=== PATIENT | female | born 1955 | race Caucasian/White ===

== ENCOUNTER 2017-04-16 13:21 | Inpatient (IN) ==
[2017-04-16] MEDS ORDERED: Ondansetron 4 MG/2 ML VIAL IVP ONE (13:39)
[2017-04-16] MEDS ORDERED: *HR* HYDROmorphone (PF) 1 MG/ML SYRINGE IVP ONE (13:40)
--- NOTE | 2017-04-16 13:43 | Emergency Department Note ---
START Narrative - START START: Start note: 62-year-old female from [facility] visit patient for surgeon section [address] scan showed acute cholecystitis and secondary small bowel obstruction. I ordered Dilaudid and Zofran for pain control. Awaiting callback from Dr. Gomez so he can be notified this patient is here to be further evaluated and managed. Patient stable.
[2017-04-16] MEDS ORDERED: Ondansetron 4 MG/2 ML VIAL IVP PRN (14:39)
--- NOTE | 2017-04-16 15:10 | General Surg History&Physical ---
Date of Encounter: 04/16/17 Time of Encounter: 14:35 History of Present Illness Chief complaint: Right upper quadrant abdominal pain HPI: Ms. Adamson is a 62 year old female transferred from [facility] in [place] after presenting there with new onset right upper quadrant abdominal pain with nausea. Evaluation at [facility] included blood work and a CT scan chest and abdomen. Blood work was notable for a leukocytosis of 13.8, hemoglobin 12.8 , hematocrit 38.9. Platelet count was 222,000. Differential was notable for elevated absolute neutrophils 11.9%. Electrolytes, BUN, and creatinine were within normal limits; glucose was 137. Lactic acid was 0.7. Alkaline phosphatase 118, bilirubin 0.5, AST 20, ALT 25. Amylase and lipase were not obtained. Urinalysis was notable for a specific gravity of 1.020, pH 5.5, trace hemoglobin, 3-5 red cells per high powered field. CT of the chest demonstrated minimal bibasilar atelectasis, no other acute findings. CT of the abdomen demonstrated a distended gallbladder with wall thickening and multiple stones within the gallbladder neck. Mild intra-and extrahepatic bile duct dilatation but no definitive choledocholithiasis was identified. The lower bowel loops are somewhat distended leading up to an umbilical hernia containing a loop of small bowel. This loop of small bowel contained within a small jacqueline- umbilical ventral hernia as been demonstrated in the past. While question of partial or low-grade obstruction was made no mucosal thickening was identified. There were no intra-abdominal masses evident within the abdomen or pelvis. Based on these findings, recommendation was to admit the patient for possible small bowel obstruction was made. The patient requested transfer to [facility]. Patient is well known to me as the patient has gone multiple surgeries through my office in the past. Past medical history: hypertension; obesity; known gallstones since 2011; hypothyroidism Surgical history: JEFF/BSO 08/21/2006 complicated by perforation of the rectum. This required exploratory celiotomy with Richard procedure following day, 08/22, completed by Dr. Joseph Richardson. (A former associate of my practice) This surgery was complicated by infection of the anterior abdominal wall requiring operative debridement 09/21/06. The patient underwent reversal of the Richard procedure, 04/2007. The patient underwent exploratory celiotomy, stated lysis of adhesions and segmental small bowel resection 2 and reversal of the Richard procedure. This was completed by Dr. Joseph Richardson. That surgery was complicated by a current infection of the anterior abdominal wall requiring prolonged healing (almost 4 years) despite multiple treatment modalities. Allergies penicillin Medications: Metoprolol 25 mg by mouth daily Levothyroxine 50 mg by mouth daily Citalopram 10 mg by mouth daily Social history: Patient is currently , lives with her ; former smoker having quit in 2005, admitting to 1 pack per day from [id number] (12 years ) Patient denies any alcohol or illicit drug use Physical examination: Age-appropriate female resting comfortably in her urgency Department bed The patient is somewhat lethargic, likely due to medications provided at [facility], but is awake and alert and able to answer questions appropriately. The patient is 62 inches tall, 83 kg; afebrile, 97.2; blood pressure 186/88, pulse 84, respirations 18 and nonlabored; SPO2 on room air 97% Skin is warm, without obvious jaundice; sclerae are anicteric Lungs: Clear, no obvious pain on deep inspiration (patient had previously been medicated) Cardiac: Regular rate, no appreciable murmurs Abdomen: Extensive surgical scarring, particularly in the lower half consistent with the history described above. The periumbilical ventral hernia was not readily palpable. Tenderness in the right upper quadrant lateral to the midclavicular line was evident. No discernible palpable gallbladder, or detected hepatosplenomegaly. No CVA tenderness, no rebound. Bowel sounds hypoactive. Extremities: No obvious clubbing cyanosis or edema Impression: 62-year-old female transferred from [facility], for further evaluation and treatment of new onset right upper quadrant abdominal pain with possible low-grade partial small bowel obstruction. The patient will be admitted for further observation, monitoring and care. IV fluids with appropriate IV narcotic analgesics will be provided. Clear liquids will be permitted if no N/V. The new onset abdominal pain likely due to the known presence of cholelithiasis with resultant biliary colic. The possibility of acute cholecystitis cannot be excluded at this time. The described all bowel dilatation may be chronic related to the patient's prior surgical history and known periumbilical ventral hernia. The possibility of a partial or low- grade bowel obstruction will be investigated during this hospitalization. This has been discussed the patient, she was willing to proceed with the treatment plan as outlined. Past Med Surg Social Fam HX - Past Medical History Medical history: hyperlipidemia, thyroid disease, other Psychiatric history: depression - Social History Smoking Status: Never smoker Alcohol use: none Drug use: none Medications and Allergies Allergies Penicillins Allergy (Verified 04/16/17 13:24) Rash Review of Systems All systems PM: A 10-system review of systems was performed and is negative for pertinent findings except as documented above in the HPI. General Surgery Exam Initial Vital Signs Temp Pulse Resp BP Pulse Ox 98.2 F 89 18 202/104 95 04/16/17 13:24 04/16/17 13:24 04/16/17 13:24 04/16/17 13:24 04/16/17 13:24 Results - Labs All other labs normal.
[2017-04-16] MEDS: *HR* HYDROmorphone (PF) 1 MG/ML SYRINGE IVP PRN (19:04)
[2017-04-16] MEDS ORDERED: Metoprolol XL (24 HR) Succ 25 MG TAB.ER.24H PO ONE (19:18)
[2017-04-16] MEDS ORDERED: D5% in 0.45% NACL 1,000 ML IVC SCH (19:30)
[2017-04-16] MEDS: Acetaminophen 325 MG TABLET PO PRN (21:25)
[2017-04-17] MEDS: *HR* HYDROmorphone (PF) 1 MG/ML SYRINGE IVP PRN ×4 (03:14→22:23)
[2017-04-17 03:53] LABS: Basophils % 0.2 %; Eosinophils % 0.2 %; Hemoglobin 11.7 g/dL (11.5-15.4); Immature Granulocytes % 0.4 % (0-4); Lymphocytes # 1.4 K/mcL (0.6-4.6); Lymphocytes % 8.9 %; Mean Corpuscular HGB Conc 30.8 g/dL (31.6-35.5); Mean Corpuscular Hemoglobin 28.3 pg (28.0-33.3); Mean Corpuscular Volume 91.8 fL (83.0-100.0); Mean Platelet Volume 11.4 fL (9.4-12.4); Monocytes # 1.6 K/mcL (0.0-1.3); Monocytes % 10.2 %; Neutrophils # 12.5 K/mcL (1.6-8.9); Platelet Count 237 K/mcL (140-400); Red Blood Count 4.14 M/mcL (3.82-4.97); Segmented Neutrophils % 80.1 %
[2017-04-17 04:03] LABS: Alanine Aminotransferase 55 Units/L (0-55); Albumin 3.3 g/dL (3.5-5.0); Albumin/Globulin Ratio 0.9 (1.1-2.2); Alkaline Phosphatase 117 Units/L (38-126); Amylase 66 Units/L (25-125); Aspartate Amino Transferase 50 Units/L (5-34); BUN/Creatinine Ratio 11 (6-26); Bilirubin,Total 0.9 mg/dL (0.2-1.2); Blood Urea Nitrogen 9 mg/dL (7-20); Calcium 8.8 mg/dL (8.6-10.8); Carbon Dioxide 27 mEq/L (19-29); Chloride 102 mEq/L (98-109); Globulin 3.5 g/dL (2.4-3.5); Glucose 114 mg/dL (70-99); Lipase 20 Units/L (8-78); Osmolality,Calculated 286 (280-300); Potassium 4.2 mEq/L (3.5-4.5); Sodium 138 mEq/L (136-145); Total Protein 6.8 g/dL (6.0-8.3); eGFR For African Americans > 60 (> 60); eGFR For Non-African Americans > 60 (> 60)
[2017-04-17] MEDS ORDERED: Metoprolol XL (24 HR) Succ 25 MG TAB.ER.24H PO SCH (09:00)
[2017-04-17] MEDS ORDERED: 0.9 % Sodium Chloride Mini Bag 100 ML ONE (09:32)
[2017-04-17] MEDS: Acetaminophen 325 MG TABLET PO PRN (09:37)
--- NOTE | 2017-04-17 13:30 | General Surgery Progress Note ---
Date of Encounter: 04/17/17 Time of Encounter: 13:23 Subjective Patient reports: still having pain (Pain localizing to the right upper quadrant) Narrative: [facility] Day #[facility] the [facility] completed this morning confirms the presence of acute calculus cholecystitis. The patient has been afebrile, currently 99.2; pulse 75, respirations 18, blood pressure 99/66 - 102/69 Tenderness now localized to the right upper quadrant. The rest the abdomen was fairly unremarkable. The patient is tolerating clear liquid diet White count slightly increased to 15.6, hemoglobin 11.7 hematocrit 38.0. Platelet count 237,000, neutrophils increased to 12.5% CT from [facility] was reviewed with [facility]. A prior CT, 2012, was used for comparison. The described small bowel dilatation appears to be slightly increased from 2013 but the bowel pattern does not demonstrate transition zone or other findings suggestive of a bowel obstruction. The described small periumbilical ventral hernia appears to be all bowel densely adherent to the anterior abdominal wall related to the prior surgical history. This was discussed with the patient. The patient's acute symptoms are related to her hepatobiliary disease and surgery for this entity as been recommended. The patient is not considered to be a candidate for laparoscopic or robotic surgery. An open cholecystectomy was gradual. The procedure was discussed with the patient. Risks include hemorrhage, infection, intra-abdominal abscess , bile leak, injury to adjacent ducts, vessels, organs, and bowel. Possible respiratory and cardiac risks such as respiratory failure and prolonged mechanical ventilation, dysrhythmia and WA was also discussed. Consent has been obtained from the patient. Surgery is planned for later today Objective Vital Signs - Last 8 Hours Temp Pulse Resp BP Pulse Ox 04/17/17 11:00 99.2 F 75 18 99/66 95 04/17/17 07:32 98.6 F 70 18 102/69 94 Intake and Output 04/16/17 04/17/17 04/17/17 23:59 07:59 15:59 Intake Total 240 / 240 294 / 294 479 / 479 Output Total 200 / 200 300 / 300 0 / 0 Balance 40 / 40 -6 / -6 479 / 479 Intake: IV Fluids 294 / 294 359 / 359 0.9 % Sodium Chloride ( 100 / 100 Mini-Bag +) 100 ML As . ROUTE .[facility] Rx#: [id number] D5% And 0.45% Nacl 1000 294 / 294 259 / 259 Ml Bag 1,000 ML @ 50 mls/ hr IVC .Q20H [facility] Rx#: [id number] Oral 240 / 240 0 / 0 120 / 120 Output: Urine 200 / 200 300 / 300 0 / 0 Other: Meal Dinner Lunch Weight 84.3 kg 84.3 kg 84.51 kg Blood Glucose* 146 Patient Weight 04/17/17 23:59 Weight 84.51 kg - Labs 04/17/17 02:30 04/17/17 02:30 Diabetes panel 04/17/17 Range/Units 02:30 Sodium 138 (136-145) mEq/L Potassium 4.2 (3.5-4.5) mEq/L Chloride 102 (98-109) mEq/L Carbon Dioxide 27 (19-29) mEq/L BUN 9 (7-20) mg/dL Creatinine 0.84 (0.57-1.11) mg/dL Glucose 114 H (70-99) mg/dL Calcium 8.8 (8.6-10.8) mg/dL AST 50 H (5-34) Units/L ALT 55 (0-55) Units/L Alkaline Phosphatase 117 (38-126) Units/L Albumin 3.3 L (3.5-5.0) g/dL Calcium panel 04/17/17 Range/Units 02:30 Calcium 8.8 (8.6-10.8) mg/dL Albumin 3.3 L (3.5-5.0) g/dL Pituitary panel 04/17/17 Range/Units 02:30 Sodium 138 (136-145) mEq/L Potassium 4.2 (3.5-4.5) mEq/L Chloride 102 (98-109) mEq/L Carbon Dioxide 27 (19-29) mEq/L BUN 9 (7-20) mg/dL Creatinine 0.84 (0.57-1.11) mg/dL Glucose 114 H (70-99) mg/dL Calcium 8.8 (8.6-10.8) mg/dL Adrenal panel 04/17/17 Range/Units 02:30 Sodium 138 (136-145) mEq/L Potassium 4.2 (3.5-4.5) mEq/L Chloride 102 (98-109) mEq/L Carbon Dioxide 27 (19-29) mEq/L BUN 9 (7-20) mg/dL Creatinine 0.84 (0.57-1.11) mg/dL Glucose 114 H (70-99) mg/dL Calcium 8.8 (8.6-10.8) mg/dL Total Bilirubin 0.9 (0.2-1.2) mg/dL AST 50 H (5-34) Units/L ALT 55 (0-55) Units/L Alkaline Phosphatase 117 (38-126) Units/L Albumin 3.3 L (3.5-5.0) g/dL Consult Discharge Plan - Plan Referrals: Bertha Aleman DO [Primary Care Provider] -
[2017-04-17] MEDS ORDERED: *HR* Propofol 200 MG/20 ML VIAL IVP ONE (16:30)
[2017-04-17] MEDS ORDERED: *HR* Midazolam HCl 2 MG/2 ML VIAL ONE (16:30)
[2017-04-17] MEDS ORDERED: Ondansetron 4 MG/2 ML VIAL ONE (16:30)
[2017-04-17] MEDS ORDERED: Dexamethasone 4 MG/ML VIAL ONE (16:30)
[2017-04-17] MEDS ORDERED: Lidocaine -MPF 2% 2 ML VIAL ONE (16:30)
[2017-04-17] MEDS ORDERED: *HR* FentaNYL (PF) 100 MCG/2 ML VIAL ONE (16:30)
[2017-04-17] MEDS ORDERED: Bupivacaine/EPI 1:200k 0.25%PF 10 ML VIAL INFILT ONE (16:47)
--- NOTE | 2017-04-17 16:53 | Anesthesia Evaluation PreOp ---
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 Other Medical History: Thyroid Anesthesia History: Past Anesthesia, Problems Alcohol Use: none Drug use: none Medications and Allergies Citalopram Hydrobromide [Citalopram HBr] 10 mg PO DAILY 04/16/17 [History] Levothyroxine [Synthroid] 50 mcg PO DAILY 04/16/17 [History] Metoprolol XL (24 HR) Succ [Toprol XL] 25 mg PO DAILY 04/16/17 [History] Allergies Penicillins Allergy (Verified 04/16/17 13:24) Rash - Meds/Allergy Pre-op Review Medications Reviewed: Yes Allergies Reviewed: Yes Beta Blockers on Current Med List: Yes (last dose 04/16/17) Anesthesia Results - Labs 04/17/17 02:30 04/17/17 02:30 Anesthesia Exam Selected Entries 04/17/17 15:54 Temperature 98.5 F Pulse Rate 74 Respiratory Rate 18 Blood Pressure 111/75 O2 Sat by Pulse Oximetry 94 Oxygen Flow Rate (LPM) 2 Weight: 85 NPO (# of Hours): clears until 1 pm Pain Scale: 6 - HEENT Pupil (Motor): Pupils equal Mallampati: II Teeth: Normal Oral Opening: Greater than 3 - Cardiac Rhythm: Regular - Pulmonary Breath Sounds: bilateral Clear Anesthesia Assess/Plan ASA Score: 2 Modified Lowell Scale for Level of Consciousness: Anixous, agitated or restless (In acute pain) Anesthetic Plan: General Monitoring Plan: Standard Monitors Recovery Plan: PACU (Rapid sequence intubation will be performed. Discussed GA risks discussed, patient agreed. Will proceed.)
[2017-04-17] MEDS ORDERED: *HR* Midazolam HCl 2 MG/2 ML VIAL IVP PRN ×2 (16:58→18:20)
[2017-04-17] MEDS ORDERED: Ketorolac 30 MG/ML VIAL IVP ONE (16:58)
[2017-04-17] MEDS ORDERED: Bupivacaine/EPI 1:200k 0.25%PF 30 ML VIAL ONE (17:43)
[2017-04-17] MEDS ORDERED: *HR* Metoprolol 5 MG/5 ML VIAL IVP PRN (18:20)
[2017-04-17] MEDS ORDERED: *HR* HYDROmorphone (PF) 1 MG/ML SYRINGE IVP PRN (18:20)
[2017-04-17] MEDS ORDERED: Ondansetron 4 MG/2 ML VIAL IVP ONE (18:20)
[2017-04-17] MEDS ORDERED: *HR* HYDROmorphone 2 MG/ML SYRINGE ONE (18:37)
--- NOTE | 2017-04-17 19:18 | Operative Note ---
Date of procedure: 04/17/17 Pre-op diagnosis: Acute acalculous cholecystitis Post-op diagnosis: same (Acute calculus cholecystitis) Procedure: Open cholecystectomy Implants: 7 mm LARISSA drain Complications: None apparent Anesthesia: GETA Local Anesthetics: 0.25% Sensorcaine HCL with Epinephrine 1:200,000 SubQ (cc) ( 40 mL) Surgeon: Jm Gomez Estimated blood loss (cc): 50 IV fluids (cc): 1,000 Specimen: gallbladder Condition: stable Disposition: PACU Procedure in Detail: The patient was brought to the operating room where she was placed supine upon the operating room table. The patient was appropriately identified as person and procedure. The accuracy of that information was confirmed by the procedure team. The patient was intubated and anesthetized under the supervision of Dr. Megan Mendoza. The abdomen was prepped and draped in usual sterile fashion. Several milliliters of 0.25% bupivacaine with 1-200,000 epinephrine was infiltrated into the skin. A subcostal incision was made essentially from the midline to the anterior axillary line. Dissection was carried to the anterior rectus sheath. Bleeding points were controlled with electrocautery. The anterior rectus fascia was incised, the right rectus abdominis divided with electrocautery. Posterior rectus sheath was grasped with 2 curved Yulia clamps , elevated, and incised. This allowed atraumatic entry into the abdominal cavity. Exposure was facilitated by use of the self retaining Omni-Tract retractor. There are multiple adhesions within the peritoneal cavity consistent with the patient's previous surgery as well as the acute calculus cholecystitis. The adhesions were divided predominantly by blunt dissection. The gallbladder was dissected from the liver bed with bleeding points controlled with Argon Beam Coagulation. The cystic artery was identified clipped and divided. The cystic cystic duct was also identified clipped twice distally, a suture placed proximally near the infundibulum of gallbladder and then divided. The gallbladder was removed and sent to pathology. There was at least one large stone within the gallbladder. The common bile duct and common hepatic duct was dilated but there were no palpable stones. Due to the acute inflammation and appropriate visualization of the anatomy, I opted not to obtain a cholangiogram. Liver bed was fulgurated with Argon Beam coagulation. A 7 mm Fredy-Hamm was placed in the gallbladder fossa and exited through a separate stab wound on the anterior abdominal wall and the right upper quadrant. The drain was positioned and secured to the anterior abdominal wall with 3-0 silk. Hemostasis appeared to be adequate. Closure was then initiated in layers. The peritoneum was approximated with the posterior rectus sheath using running, interlocking 0 Vicryl. This layer was infiltrated with several milliliters of 0.25% bupivacaine with 1-200,000 epinephrine. The anterior rectus sheath was then approximated with interrupted [id number] 0 Vicryl. This layer was also infiltrated with the bupivacaine with epinephrine solution. The subcutaneous tissue was reapproximated with running 3-0 Vicryl. The skin edges were infiltrated with additional bupivacaine epinephrine and approximated with randal. A dry sterile dressing was applied. The patient was taken to recovery in stable condition. Needle, sponge, and instrument counts were correct at the close of the case. Total volume of 0.25% bupivacaine with 1-200, 000 epinephrine used during the surgery, 40 mL.
[2017-04-17] MEDS: *HR* Morphine 2 MG/ML SYRINGE IVP PRN ×2 (19:40→19:52)
--- NOTE | 2017-04-17 20:07 | Anesthesia Evaluation Post Op ---
Date of Encounter: 04/17/17 Time of Encounter: 20:05 - Vital Signs Vital Signs: Vital Signs/O2 Sat/Glucose, Most Current Temp Pulse Resp BP Pulse Ox 04/17/17 19:58 97.8 F 93 16 145/75 94 04/17/17 19:48 97 14 141/77 93 04/17/17 19:38 98 14 152/84 94 04/17/17 19:28 97.6 F 102 14 152/84 91 04/17/17 19:18 95 12 138/70 97 04/17/17 19:08 93 12 143/62 94 04/17/17 18:58 97.3 F L 87 12 124/70 96 - Lungs Lungs: Clear Ascult./Percussion - Airway Airway: Non-obstructed - Cardiovascular Regular Rate - Mental Status Mental Status: Alert & Oriented, Answers Appropriately - Nausea Vomiting Nausea Vomiting: Not Present - Hydration Hydration: Ice chips - Discharge PostOp Status: Transfer Patient to floor
[2017-04-17] MEDS ORDERED: Ondansetron 4 MG/2 ML VIAL IVP PRN (20:30)
[2017-04-17] MEDS ORDERED: *HR* OxyCODONE/APAP 5/325 TABLET PO PRN (20:30)
[2017-04-17] MEDS: Ringers Solution, Lactated 1,000 ML IVC SCH (22:25)
[2017-04-18] MEDS: *HR* HYDROmorphone (PF) 1 MG/ML SYRINGE IVP PRN ×5 (01:41→19:54)
[2017-04-18] MEDS: Ringers Solution, Lactated 1,000 ML IVC SCH ×2 (04:10→19:54)
[2017-04-18 05:13] LABS: Basophils % 0.1 %; Hematocrit 32.4 % (35.3-44.9); Hemoglobin 10.5 g/dL (11.5-15.4); Immature Granulocytes % 0.8 % (0-4); Lymphocytes # 0.5 K/mcL (0.6-4.6); Lymphocytes % 2.7 %; Mean Corpuscular HGB Conc 32.4 g/dL (31.6-35.5); Mean Corpuscular Hemoglobin 28.8 pg (28.0-33.3); Mean Platelet Volume 10.9 fL (9.4-12.4); Monocytes # 1.3 K/mcL (0.0-1.3); Monocytes % 6.9 %; Neutrophils # 16.3 K/mcL (1.6-8.9); Platelet Count 228 K/mcL (140-400); Red Blood Count 3.64 M/mcL (3.82-4.97); Red Cell Distribution Width 14.8 % (11.5-14.5); Segmented Neutrophils % 89.5 %
[2017-04-18 05:24] LABS: Alanine Aminotransferase 81 Units/L (0-55); Albumin 2.8 g/dL (3.5-5.0); Albumin/Globulin Ratio 0.8 (1.1-2.2); Alkaline Phosphatase 126 Units/L (38-126); Aspartate Amino Transferase 68 Units/L (5-34); BUN/Creatinine Ratio 16 (6-26); Bilirubin,Direct 0.4 mg/dL (0.0-0.5); Bilirubin,Indirect 0.4 mg/dL (0.0-1.2); Bilirubin,Total 0.8 mg/dL (0.2-1.2); Blood Urea Nitrogen 13 mg/dL (7-20); Calcium 8.9 mg/dL (8.6-10.8); Carbon Dioxide 29 mEq/L (19-29); Chloride 103 mEq/L (98-109); Globulin 3.3 g/dL (2.4-3.5); Glucose 134 mg/dL (70-99); Osmolality,Calculated 286 (280-300); Potassium 4.5 mEq/L (3.5-4.5); Sodium 137 mEq/L (136-145); Total Protein 6.1 g/dL (6.0-8.3); eGFR For African Americans > 60 (> 60); eGFR For Non-African Americans > 60 (> 60)
--- NOTE | 2017-04-18 13:49 | General Surgery Progress Note ---
Date of Encounter: 04/18/17 Time of Encounter: 13:40 Subjective Patient reports: feels better, still having pain, pain is less Narrative: POD # 1: patient feeling better; c/o pain but diminished from pre op. Tolerating diet, no nausea or vomiting. Pain likely incisional following open cholecystectomy last evening. the patient has remained afebrile, pulse 78(range); respiratory rate 18; blood pressure 115/69 Lungs: clear to auscultation but right upper quadrant pain with inspiration. Cardiac: regular rate, no appreciable murmurs Abd: obese with jacqueline incisional pain; incision clean and dry. Active bowel sounds. LARISSA drain - 665 mL for this calendar day - no recorded drainage yesterday. The drainage has changed in character from bilious to semi liquid bilious fluid This is concerning. Urine output : 350 mL so far today - acceptable laboratories: WBC 18.2; Hgb 10.5, Hct 32.4; Platelets 228,000 electrolytes, BUN, creatinine within normal limits Total bilirubin o.8; AST 68; ALT 81; alkaline phosphatase 126 Impression: POD #1 for acute calculus cholecystitis, s/p open cholecystectomy. Acceptable post op status but LARISSA drainage concerning as the fluid in the reservoir appears similar to stool. Patient c/o pain not controlled by oral analgesics - will increase the Percocet to 10/325 every 6 hours PRN abnormal labs appear to be due to the recent surgery - will recheck in AM Plan: urgent CT resume Ertapenem pending CT results. Objective Vital Signs - Last 8 Hours Temp Pulse Resp BP Pulse Ox 04/18/17 11:13 98.9 F 74 18 103/62 96 04/18/17 07:59 98.6 F 71 20 131/72 97 Intake and Output 04/17/17 04/18/17 04/18/17 23:59 07:59 15:59 Intake Total 1050 / 1050 498 / 498 Output Total 690 / 690 Balance 845 / 845 -192 / -192 Intake: IV Fluids 1000 / 1000 378 / 378 Lactated Ringers 1,000 ML 1000 / 1000 378 / 378 @ 75 mls/hr IVC .[id number] [facility] Rx#:[id number] Oral 50 / 50 120 / 120 Output: Urine 0 / 0 350 / 350 Wound Drainage 340 / 340 Right Abdomen 205 / 205 340 / 340 Other: Meal Breakfast Percent of Meal Consumed 25% # Voids 1 Weight 89.9 kg Patient Weight 04/18/17 23:59 Weight 89.9 kg - Labs 04/18/17 04:44 04/18/17 04:44 Diabetes panel 04/18/17 Range/Units 04:44 Sodium 137 (136-145) mEq/L Potassium 4.5 (3.5-4.5) mEq/L Chloride 103 (98-109) mEq/L Carbon Dioxide 29 (19-29) mEq/L BUN 13 (7-20) mg/dL Creatinine 0.83 (0.57-1.11) mg/dL Glucose 134 H (70-99) mg/dL Calcium 8.9 (8.6-10.8) mg/dL AST 68 H (5-34) Units/L ALT 81 H (0-55) Units/L Alkaline Phosphatase 126 (38-126) Units/L Albumin 2.8 L (3.5-5.0) g/dL Calcium panel 04/18/17 Range/Units 04:44 Calcium 8.9 (8.6-10.8) mg/dL Albumin 2.8 L (3.5-5.0) g/dL Pituitary panel 04/18/17 Range/Units 04:44 Sodium 137 (136-145) mEq/L Potassium 4.5 (3.5-4.5) mEq/L Chloride 103 (98-109) mEq/L Carbon Dioxide 29 (19-29) mEq/L BUN 13 (7-20) mg/dL Creatinine 0.83 (0.57-1.11) mg/dL Glucose 134 H (70-99) mg/dL Calcium 8.9 (8.6-10.8) mg/dL Adrenal panel 04/18/17 Range/Units 04:44 Sodium 137 (136-145) mEq/L Potassium 4.5 (3.5-4.5) mEq/L Chloride 103 (98-109) mEq/L Carbon Dioxide 29 (19-29) mEq/L BUN 13 (7-20) mg/dL Creatinine 0.83 (0.57-1.11) mg/dL Glucose 134 H (70-99) mg/dL Calcium 8.9 (8.6-10.8) mg/dL Total Bilirubin 0.8 (0.2-1.2) mg/dL AST 68 H (5-34) Units/L ALT 81 H (0-55) Units/L Alkaline Phosphatase 126 (38-126) Units/L Albumin 2.8 L (3.5-5.0) g/dL - VTE Documentation of Mechanical Device: Venous foot pump, device Consult Discharge Plan - Plan Referrals: Jm Gomez MD [Emergency Midlevel Provider] - Bertha Aleman DO [Primary Care Provider] -
[2017-04-18] MEDS: *HR* OxyCODONE/APAP 10/325 TABLET PO PRN ×2 (15:59→23:03)
[2017-04-18] MEDS: Ertapenem 1,000 MG in 0.9 % Sodium Chloride Mini Bag 100 ML IVPB SCH (15:59)
[2017-04-19] MEDS: *HR* HYDROmorphone (PF) 1 MG/ML SYRINGE IVP PRN ×3 (01:57→21:45)
[2017-04-19 05:27] LABS: Hematocrit 33.4 % (35.3-44.9); Hemoglobin 10.6 g/dL (11.5-15.4); Mean Corpuscular HGB Conc 31.7 g/dL (31.6-35.5); Mean Corpuscular Hemoglobin 28.7 pg (28.0-33.3); Mean Corpuscular Volume 90.5 fL (83.0-100.0); Mean Platelet Volume 11.1 fL (9.4-12.4); Platelet Count 269 K/mcL (140-400); Red Blood Count 3.69 M/mcL (3.82-4.97); Red Cell Distribution Width 14.9 % (11.5-14.5)
[2017-04-19 05:42] LABS: Alanine Aminotransferase 48 Units/L (0-55); Albumin 2.4 g/dL (3.5-5.0); Albumin/Globulin Ratio 0.7 (1.1-2.2); Alkaline Phosphatase 107 Units/L (38-126); Amylase 71 Units/L (25-125); Aspartate Amino Transferase 33 Units/L (5-34); BUN/Creatinine Ratio 21 (6-26); Bilirubin,Total 0.6 mg/dL (0.2-1.2); Blood Urea Nitrogen 21 mg/dL (7-20); Calcium 8.9 mg/dL (8.6-10.8); Carbon Dioxide 29 mEq/L (19-29); Chloride 99 mEq/L (98-109); Globulin 3.3 g/dL (2.4-3.5); Glucose 138 mg/dL (70-99); Lipase 18 Units/L (8-78); Osmolality,Calculated 285 (280-300); Potassium 4.6 mEq/L (3.5-4.5); Sodium 135 mEq/L (136-145); Total Protein 5.7 g/dL (6.0-8.3); eGFR For African Americans > 60 (> 60); eGFR For Non-African Americans 57 (> 60)
[2017-04-19 05:50] LABS: Eosinophils # 0.2 K/mcL (0.0-0.6); Monocytes # 0.6 K/mcL (0.0-1.3); Neutrophils # 8.5 K/mcL (1.6-8.9); Platelet Estimate Normal (Normal)
[2017-04-19] MEDS: *HR* OxyCODONE/APAP 10/325 TABLET PO PRN ×2 (06:50→19:02)
[2017-04-19] MEDS: Ertapenem 1,000 MG in 0.9 % Sodium Chloride Mini Bag 100 ML IVPB SCH (08:50)
--- NOTE | 2017-04-19 11:46 | General Surgery Progress Note ---
Date of Encounter: 04/19/17 Time of Encounter: 11:29 Subjective Patient reports: feels better, pain is less, tolerating a regular diet Narrative: POD #2 - patient feeling better; incisional pain is better controlled with Percocet 10/325. The patient is tolerating a regular diet, no nausea or vomiting. CT completed yesterday was personally reviewed [facility] shortly after completion yesterday. Findings include: Small right pleural effusion and right lower lobe atelectasis; fatty obstruction of the liver; evidence of recent cholecystectomy with fluid in the gallbladder fossa; fluid in the right paracolic gutter was also described;stable right nephrolithiasis without obstructive uropathy; drain well positioned in the gallbladder fossa; right Flank hematoma with no evidence of active bleeding; normal-appearing bowel pattern with no evidence of obstruction or ileus; no findings suggestive subhepatic abscess or suspicious fluid collection consistent with local bowel injury following the open cholecystectomy. Afebrile, currently 98.1; pulse 86, respirations 16, blood pressure 127/77. She is still on nasal cannula, 1 L/m, SPO2 91-93%. Lungs: Clear to auscultation, minimal persistent right subcostal pain with deep inspiration consistent with recent open cholecystectomy Cardiac: Regular rate, no appreciable murmurs Abdomen: Obese, soft with tenderness localized around the incision. The subcostal incision is clean and dry and healing nicely. Active bowel sounds are audible. LARISSA - continued bilious drainage; 755 mL recorded 46; 165 mL so far today. Laboratories: Leukocytosis resolved, 10.4; stable hemoglobin 10.6, hematocrit 33.4. Platelet count 269,000. 12% band neutrophils noted. Electrolytes, BUN, creatinine notable for potassium of 4.6, sodium 135, BUN 21, creatinine 0.99. LFTs have normalized; bilirubin 0.6, AST 33, ALT 48, alkaline phosphatase 107. Amylase 71, lipase 18. Pathology: Chronic cholecystitis, cholelithiasis. In the gross description of the gallbladder gallbladder wall was markedly edematous averaging 4 mm In thickness. The edema consistent with the intraoperative findings of acute calculus cholecystitis. Impression: POD #2 - s/p open cholecystectomy. Incisional pain as expected. Pathologic findings consistent with clinical diagnosis. Postoperative bile leak Hyponatremia without obvious symptoms Borderline hyperkalemia, 4.6 No persistent evidence SBO. Plan: continue IV ATB, encourage incentive spirometry and activity OOB. continue percocet 10/325 for pain monitor LARISSA output - patient may benefit from ERCP with placement biliary stent if the bile leak appears to persist without abatement. Objective Vital Signs - Last 8 Hours Temp Pulse Resp BP Pulse Ox 04/19/17 07:55 98.1 F 86 16 127/77 93 04/19/17 04:04 98.3 F 89 14 103/69 91 Intake and Output 04/18/17 04/19/17 04/19/17 23:59 07:59 15:59 Intake Total 221 / 221 0 / 0 770 / 770 Output Total 340 / 340 180 / 180 85 / 85 Balance -119 / -119 -180 / -180 685 / 685 Intake: IV Fluids 221 / 221 770 / 770 Lactated Ringers 1,000 ML 121 / 121 670 / 670 @ 50 mls/hr IVC .Q20H [facility] Rx#:[id number] INVanz 1,000 MG In 0.9 % 100 / 100 100 / 100 Sodium Chloride (Mini-Bag +) 100 ML @ 100 mls/hr IVPB DAILY [facility] Rx#: [id number] Oral 0 / 0 0 / 0 Output: Urine 250 / 250 100 / 100 Wound Drainage 90 / 90 80 / 80 85 / 85 Right Abdomen 90 / 90 80 / 80 85 / 85 Other: Weight 90.2 kg Patient Weight 04/19/17 23:59 Weight 90.2 kg - Labs 04/19/17 04:09 04/19/17 04:09 Diabetes panel 04/19/17 Range/Units 04:09 Sodium 135 L (136-145) mEq/L Potassium 4.6 H (3.5-4.5) mEq/L Chloride 99 (98-109) mEq/L Carbon Dioxide 29 (19-29) mEq/L BUN 21 H (7-20) mg/dL Creatinine 0.99 (0.57-1.11) mg/dL Glucose 138 H (70-99) mg/dL Calcium 8.9 (8.6-10.8) mg/dL AST 33 (5-34) Units/L ALT 48 (0-55) Units/L Alkaline Phosphatase 107 (38-126) Units/L Albumin 2.4 L (3.5-5.0) g/dL Calcium panel 04/19/17 Range/Units 04:09 Calcium 8.9 (8.6-10.8) mg/dL Albumin 2.4 L (3.5-5.0) g/dL Pituitary panel 04/19/17 Range/Units 04:09 Sodium 135 L (136-145) mEq/L Potassium 4.6 H (3.5-4.5) mEq/L Chloride 99 (98-109) mEq/L Carbon Dioxide 29 (19-29) mEq/L BUN 21 H (7-20) mg/dL Creatinine 0.99 (0.57-1.11) mg/dL Glucose 138 H (70-99) mg/dL Calcium 8.9 (8.6-10.8) mg/dL Adrenal panel 04/19/17 Range/Units 04:09 Sodium 135 L (136-145) mEq/L Potassium 4.6 H (3.5-4.5) mEq/L Chloride 99 (98-109) mEq/L Carbon Dioxide 29 (19-29) mEq/L BUN 21 H (7-20) mg/dL Creatinine 0.99 (0.57-1.11) mg/dL Glucose 138 H (70-99) mg/dL Calcium 8.9 (8.6-10.8) mg/dL Total Bilirubin 0.6 (0.2-1.2) mg/dL AST 33 (5-34) Units/L ALT 48 (0-55) Units/L Alkaline Phosphatase 107 (38-126) Units/L Albumin 2.4 L (3.5-5.0) g/dL - VTE Documentation of Mechanical Device: Venous foot pump, device Consult Discharge Plan - Plan Referrals: Jm Gomez MD [Emergency Midlevel Provider] - Bertha Aleman DO [Primary Care Provider] -
[2017-04-19] MEDS: Ringers Solution, Lactated 1,000 ML IVC SCH (21:45)
[2017-04-20] MEDS: *HR* OxyCODONE/APAP 10/325 TABLET PO PRN ×4 (02:56→20:28)
[2017-04-20 05:05] LABS: Basophils % 0.2 %; Eosinophils # 0.1 K/mcL (0.0-0.6); Eosinophils % 0.9 %; Hematocrit 30.7 % (35.3-44.9); Hemoglobin 9.6 g/dL (11.5-15.4); Immature Granulocytes % 0.4 % (0-4); Lymphocytes # 0.8 K/mcL (0.6-4.6); Lymphocytes % 8.4 %; Mean Corpuscular HGB Conc 31.3 g/dL (31.6-35.5); Mean Corpuscular Hemoglobin 28.3 pg (28.0-33.3); Mean Corpuscular Volume 90.6 fL (83.0-100.0); Mean Platelet Volume 10.7 fL (9.4-12.4); Monocytes # 0.8 K/mcL (0.0-1.3); Monocytes % 8.5 %; Neutrophils # 7.9 K/mcL (1.6-8.9); Platelet Count 268 K/mcL (140-400); Red Blood Count 3.39 M/mcL (3.82-4.97); Red Cell Distribution Width 14.7 % (11.5-14.5); Segmented Neutrophils % 81.6 %
[2017-04-20 05:34] LABS: BUN/Creatinine Ratio 20 (6-26); Blood Urea Nitrogen 16 mg/dL (7-20); Calcium 8.8 mg/dL (8.6-10.8); Carbon Dioxide 28 mEq/L (19-29); Chloride 99 mEq/L (98-109); Glucose 141 mg/dL (70-99); Osmolality,Calculated 282 (280-300); Potassium 4.7 mEq/L (3.5-4.5); Sodium 134 mEq/L (136-145); eGFR For African Americans > 60 (> 60); eGFR For Non-African Americans > 60 (> 60)
[2017-04-20 05:50] LABS: Large Platelets Present (Not Present); Platelet Estimate Normal (Normal)
[2017-04-20] MEDS: Acetaminophen 325 MG TABLET PO PRN (07:55)
[2017-04-20] MEDS: Ertapenem 1,000 MG in 0.9 % Sodium Chloride Mini Bag 100 ML IVPB SCH (09:31)
--- NOTE | 2017-04-20 12:42 | General Surgery Progress Note ---
Date of Encounter: 04/20/17 Time of Encounter: 12:35 Subjective Patient reports: still having pain, tolerating a regular diet Narrative: POD #3 - patient is still complaining of incisional pain; she is still using Dilaudid to supplement pain control via Percocet. Afebrile, 97.9; pulse 73, respirations 14, blood pressure 110/73. SPO2 on 1 L/m nasal cannula 95% Lungs: Clear, inspiratory effort diminished by right subcostal incisional pain Abdomen: Obese with jacqueline-incisional tenderness; incision clean and dry. Tolerating regular diet without nausea vomiting; LARISSA output steadily diminishing - 755 mL on 04/18/17, 240 mL on 04/19/17, 45 mL so far today Laboratories: White count 9.7, hemoglobin 9.6 with hematocrit 30.7 - likely reflective of hydration along with the intraoperative blood losses. Hyponatremia persists at 134; hyperkalemia 4.7 - both likely due to continued IVF -lactated Ringer's; BUN 16, creatinine 0.79. Impression: Postoperative day 3, status post open cholecystectomy for acute calculus cholecystitis Persistent incisional pain Postoperative bile leak - improving Hyponatremia Hyperkalemia Plan: Increase frequency of Percocet 10/325 to every 4 hours; discontinue Dilaudid discontinue IV fluids as patient taking adequate fluids and nutrition orally discontinue ATB. Objective Vital Signs - Last 8 Hours Temp Pulse Resp BP Pulse Ox 04/20/17 11:00 97.9 F 73 14 110/73 95 04/20/17 07:50 94 04/20/17 07:30 97.8 F 81 14 98 04/20/17 05:39 98.0 F 81 18 135/76 98 Intake and Output 04/19/17 04/20/17 04/20/17 23:59 07:59 15:59 Intake Total 580 / 580 625 / 625 460 / 460 Output Total 330 / 330 845 / 845 300 / 300 Balance 250 / 250 -220 / -220 160 / 160 Intake: IV Fluids 330 / 330 625 / 625 100 / 100 Lactated Ringers 1,000 ML 330 / 330 625 / 625 @ 50 mls/hr IVC .Q20H [facility] Rx#:[id number] INVanz 1,000 MG In 0.9 % 100 / 100 Sodium Chloride (Mini-Bag +) 100 ML @ 100 mls/hr IVPB DAILY [facility] Rx#: [id number] Oral 250 / 250 0 / 0 360 / 360 Output: Urine 300 / 300 800 / 800 300 / 300 Wound Drainage Right Abdomen Other: Meal Breakfast Breakfast Percent of Meal Consumed 20% 95% Weight 90.2 kg Patient Weight 04/20/17 23:59 Weight 90.2 kg - Labs 04/20/17 04:11 04/20/17 04:11 Diabetes panel 04/20/17 Range/Units 04:11 Sodium 134 L (136-145) mEq/L Potassium 4.7 H (3.5-4.5) mEq/L Chloride 99 (98-109) mEq/L Carbon Dioxide 28 (19-29) mEq/L BUN 16 (7-20) mg/dL Creatinine 0.79 (0.57-1.11) mg/dL Glucose 141 H (70-99) mg/dL Calcium 8.8 (8.6-10.8) mg/dL Calcium panel 04/20/17 Range/Units 04:11 Calcium 8.8 (8.6-10.8) mg/dL Pituitary panel 04/20/17 Range/Units 04:11 Sodium 134 L (136-145) mEq/L Potassium 4.7 H (3.5-4.5) mEq/L Chloride 99 (98-109) mEq/L Carbon Dioxide 28 (19-29) mEq/L BUN 16 (7-20) mg/dL Creatinine 0.79 (0.57-1.11) mg/dL Glucose 141 H (70-99) mg/dL Calcium 8.8 (8.6-10.8) mg/dL Adrenal panel 04/20/17 Range/Units 04:11 Sodium 134 L (136-145) mEq/L Potassium 4.7 H (3.5-4.5) mEq/L Chloride 99 (98-109) mEq/L Carbon Dioxide 28 (19-29) mEq/L BUN 16 (7-20) mg/dL Creatinine 0.79 (0.57-1.11) mg/dL Glucose 141 H (70-99) mg/dL Calcium 8.8 (8.6-10.8) mg/dL - VTE Documentation of Mechanical Device: Venous foot pump, device Consult Discharge Plan - Plan Referrals: Jm Gomez MD [Emergency Midlevel Provider] - Bertha Aleman DO [Primary Care Provider] -
[2017-04-21] MEDS: *HR* OxyCODONE/APAP 10/325 TABLET PO PRN ×4 (04:07→19:28)
[2017-04-21 06:56] LABS: Hematocrit 30.1 % (35.3-44.9); Hemoglobin 9.7 g/dL (11.5-15.4); Mean Corpuscular HGB Conc 32.2 g/dL (31.6-35.5); Mean Corpuscular Hemoglobin 28.9 pg (28.0-33.3); Mean Corpuscular Volume 89.6 fL (83.0-100.0); Mean Platelet Volume 10.3 fL (9.4-12.4); Nucleated Red Blood Cells 0.2 /100 WBC (0); Platelet Count 288 K/mcL (140-400); Red Blood Count 3.36 M/mcL (3.82-4.97); Red Cell Distribution Width 14.7 % (11.5-14.5)
[2017-04-21 07:10] LABS: BUN/Creatinine Ratio 18 (6-26); Blood Urea Nitrogen 12 mg/dL (7-20); Calcium 8.5 mg/dL (8.6-10.8); Carbon Dioxide 28 mEq/L (19-29); Chloride 99 mEq/L (98-109); Glucose 109 mg/dL (70-99); Osmolality,Calculated 276 (280-300); Potassium 4.7 mEq/L (3.5-4.5); Sodium 133 mEq/L (136-145); eGFR For African Americans > 60 (> 60); eGFR For Non-African Americans > 60 (> 60)
[2017-04-21 07:29] LABS: Eosinophils # 0.2 K/mcL (0.0-0.6); Lymphocytes # 0.8 K/mcL (0.6-4.6); Monocytes # 0.5 K/mcL (0.0-1.3); Neutrophils # 8.6 K/mcL (1.6-8.9); Platelet Estimate Normal (Normal)
--- NOTE | 2017-04-21 17:01 | General Surgery Progress Note ---
Date of Encounter: 04/21/17 Time of Encounter: 16:52 Subjective Patient reports: no new complaints Narrative: POD#4 - afebrile, 98.2; hemodynamically stable with pulse 84, respirations 16, blood pressure 111/76 Patient still requiring supplemental O2 at 1-2 L/m to maintain oxygen saturations 94-98% Lungs: Clear though inspiratory effort and cough still limited by subcostal incisional pain Cardiac: Regular rate, no appreciable murmur Abdomen: Soft, minimal incisional tenderness, the rest of the abdomen appears to be intact with no tenderness or rebound. Right subcostal incision clean and dry though jacqueline-incisional ecchymosis is noted. This ecchymosis is likely due to the intra-operative infiltration of bupivacaine with epinephrine into the skin edges and subcutaneous tissue LARISSA drain - drainage for 24 hours continues to diminish; 95 mL for 04/20/17; 1 mL recorded for this calendar day. Laboratories: White count 10.1, hemoglobin 9.7 with hematocrit 30.1; differential within normal limits; platelet count 288,000. Hyponatremia persists, 133; hyperkalemia persists at 4.7 but stable. The other electrolytes, BUN, creatinine remained stable/within normal limits Impression: Postop day 4, status post open cholecystectomy for acute calculus cholecystitis patient making satisfactory recovery. Pain controlled with Percocet 10/325. appetite/po intake marginal. Activity OOB/ambulation remains fairly limited. post op anemia - likely acute blood loss anemia with anemia of acute illness hyponatremia without symptoms hyperkalemia - stable, not symptomatic Plan: Hb scan in AM Repeat CBC, LFTs in AM encourage pulmonary toilet; add Proventil Aerosol Q6H encourage ambulation Objective Vital Signs - Last 8 Hours Temp Pulse Resp BP Pulse Ox 04/21/17 15:21 98.2 F 84 16 111/76 98 04/21/17 11:15 98.3 F 74 16 100/64 94 Intake and Output 04/21/17 04/21/17 04/21/17 07:59 15:59 23:59 Intake Total 120 / 120 360 / 360 Output Total 400 / 400 351 / 351 Balance -280 / -280 Intake: Oral 120 / 120 360 / 360 Output: Urine 400 / 400 350 / 350 Wound Drainage 0 / 0 1 / 1 Right Abdomen 0 / 0 / Other: Meal Lunch Percent of Meal Consumed 0% Weight 89.159 kg Blood Glucose* 133 Patient Weight 04/21/17 23:59 Weight 89.159 kg - Labs 04/21/17 06:16 04/21/17 06:16 Diabetes panel 04/21/17 Range/Units 06:16 Sodium 133 L (136-145) mEq/L Potassium 4.7 H (3.5-4.5) mEq/L Chloride 99 (98-109) mEq/L Carbon Dioxide 28 (19-29) mEq/L BUN 12 (7-20) mg/dL Creatinine 0.68 (0.57-1.11) mg/dL Glucose 109 H (70-99) mg/dL Calcium 8.5 L (8.6-10.8) mg/dL Calcium panel 04/21/17 Range/Units 06:16 Calcium 8.5 L (8.6-10.8) mg/dL Pituitary panel 04/21/17 Range/Units 06:16 Sodium 133 L (136-145) mEq/L Potassium 4.7 H (3.5-4.5) mEq/L Chloride 99 (98-109) mEq/L Carbon Dioxide 28 (19-29) mEq/L BUN 12 (7-20) mg/dL Creatinine 0.68 (0.57-1.11) mg/dL Glucose 109 H (70-99) mg/dL Calcium 8.5 L (8.6-10.8) mg/dL Adrenal panel 04/21/17 Range/Units 06:16 Sodium 133 L (136-145) mEq/L Potassium 4.7 H (3.5-4.5) mEq/L Chloride 99 (98-109) mEq/L Carbon Dioxide 28 (19-29) mEq/L BUN 12 (7-20) mg/dL Creatinine 0.68 (0.57-1.11) mg/dL Glucose 109 H (70-99) mg/dL Calcium 8.5 L (8.6-10.8) mg/dL - VTE Documentation of Mechanical Device: Venous foot pump, device Consult Discharge Plan - Plan Referrals: Jm Gomez MD [Emergency Midlevel Provider] - Bertha Aleman DO [Primary Care Provider] -
[2017-04-22] MEDS: *HR* OxyCODONE/APAP 10/325 TABLET PO PRN ×3 (00:14→13:08)
[2017-04-22 05:03] LABS: Eosinophils # 0.2 K/mcL (0.0-0.6); Hematocrit 31.5 % (35.3-44.9); Hemoglobin 10.1 g/dL (11.5-15.4); Lymphocytes # 0.7 K/mcL (0.6-4.6); Mean Corpuscular HGB Conc 32.1 g/dL (31.6-35.5); Mean Corpuscular Hemoglobin 28.9 pg (28.0-33.3); Mean Platelet Volume 10.4 fL (9.4-12.4); Platelet Count 329 K/mcL (140-400); Red Cell Distribution Width 14.8 % (11.5-14.5)
[2017-04-22 05:35] LABS: Alanine Aminotransferase 84 Units/L (0-55); Albumin/Globulin Ratio 0.5 (1.1-2.2); Alkaline Phosphatase 220 Units/L (38-126); Aspartate Amino Transferase 85 Units/L (5-34); BUN/Creatinine Ratio 14 (6-26); Blood Urea Nitrogen 10 mg/dL (7-20); Calcium 8.6 mg/dL (8.6-10.8); Carbon Dioxide 26 mEq/L (19-29); Chloride 98 mEq/L (98-109); Globulin 3.7 g/dL (2.4-3.5); Glucose 119 mg/dL (70-99); Osmolality,Calculated 276 (280-300); Potassium 4.4 mEq/L (3.5-4.5); Sodium 133 mEq/L (136-145); Total Protein 5.6 g/dL (6.0-8.3); eGFR For African Americans > 60 (> 60); eGFR For Non-African Americans > 60 (> 60)
[2017-04-22 05:36] LABS: Albumin 1.9 g/dL (3.5-5.0); Bilirubin,Total 1.2 mg/dL (0.2-1.2)
[2017-04-22 05:40] LABS: Large Platelets Present (Not Present); Monocytes # 0.9 K/mcL (0.0-1.3); Neutrophils # 9.9 K/mcL (1.6-8.9); Platelet Estimate Normal (Normal); Polychromasia 1+ (Not Present); Reactive Lymphocytes Present (Not Present)
--- NOTE | 2017-04-22 09:14 | General Surgery Progress Note ---
Date of Encounter: 04/22/17 Time of Encounter: 09:11 Subjective Patient reports: no new complaints Narrative: POD #5 - patient voicing no new complaints, heat treating furnace tender lateral aspect of the subcostal incision and around the drain. Minimal erythema right flank and around the drain The patient is afebrile 98.3; pulse 87, respirations 16, blood pressure 115/ 76. SPO2 on 2 L per nasal cannula 97% Lungs: Clear Abdomen: Tender in the right upper quadrant along the incision and around the drain. The rest of the abdomen is nontender. Appetite and oral intake has improved; active bowel sounds. LARISSA drainage approximately 36 mL for 04/21/2017 - green bilious fluid with debris HP scan pending. Laboratories: New leukocytosis 11.8; hemoglobin 10.1 with hematocrit 31.5. Platelet count 329,000. New bandemia with bands and neutrophils increased to 8% and neutrophils 9.9% Hyponatremia is stable at 133; hyperkalemia corrected to 4.4 other electrolytes, BUN, creatinine remained normal Total bilirubin 1.2, AST 85, ALT 84, alkaline phosphatase 220 Protein diminished to 5.6, albumin diminished to 1.9. Impression: Post operative day 5, status post open cholecystectomy for acute calculus cholecystitis - Patient appears to be slowly improving but has persistent right upper quadrant abdominal tenderness and now has erythema lateral aspect of the incision and surrounding the drain. Leukocytosis and abnormal LFTs noted and are concerning. Awaiting HP scan. Repeat CT may be indicated. Objective Vital Signs - Last 8 Hours Temp Pulse Resp BP Pulse Ox 04/22/17 07:30 98.3 F 87 16 115/76 97 04/22/17 03:26 98.3 F 95 14 110/69 92 Intake and Output 04/21/17 04/22/17 04/22/17 23:59 07:59 15:59 Intake Total 240 / 240 120 / 120 Output Total 235 / 235 200 / 200 Balance 5 / 5 -80 / -80 Intake: Oral 240 / 240 120 / 120 Output: Urine 200 / 200 200 / 200 Wound Drainage 35 / 35 Right Abdomen 35 / 35 Other: Meal Dinner Percent of Meal Consumed 85% Weight 88.961 kg Blood Glucose* 117 Patient Weight 04/22/17 23:59 Weight 88.961 kg - Labs 04/22/17 04:11 04/22/17 04:11 Diabetes panel 04/22/17 Range/Units 04:11 Sodium 133 L (136-145) mEq/L Potassium 4.4 (3.5-4.5) mEq/L Chloride 98 (98-109) mEq/L Carbon Dioxide 26 (19-29) mEq/L BUN 10 (7-20) mg/dL Creatinine 0.72 (0.57-1.11) mg/dL Glucose 119 H (70-99) mg/dL Calcium 8.6 (8.6-10.8) mg/dL AST 85 H (5-34) Units/L ALT 84 H (0-55) Units/L Alkaline Phosphatase 220 H (38-126) Units/L Albumin 1.9 L (3.5-5.0) g/dL Calcium panel 04/22/17 Range/Units 04:11 Calcium 8.6 (8.6-10.8) mg/dL Albumin 1.9 L (3.5-5.0) g/dL Pituitary panel 04/22/17 Range/Units 04:11 Sodium 133 L (136-145) mEq/L Potassium 4.4 (3.5-4.5) mEq/L Chloride 98 (98-109) mEq/L Carbon Dioxide 26 (19-29) mEq/L BUN 10 (7-20) mg/dL Creatinine 0.72 (0.57-1.11) mg/dL Glucose 119 H (70-99) mg/dL Calcium 8.6 (8.6-10.8) mg/dL Adrenal panel 04/22/17 Range/Units 04:11 Sodium 133 L (136-145) mEq/L Potassium 4.4 (3.5-4.5) mEq/L Chloride 98 (98-109) mEq/L Carbon Dioxide 26 (19-29) mEq/L BUN 10 (7-20) mg/dL Creatinine 0.72 (0.57-1.11) mg/dL Glucose 119 H (70-99) mg/dL Calcium 8.6 (8.6-10.8) mg/dL Total Bilirubin 1.2 (0.2-1.2) mg/dL AST 85 H (5-34) Units/L ALT 84 H (0-55) Units/L Alkaline Phosphatase 220 H (38-126) Units/L Albumin 1.9 L (3.5-5.0) g/dL - VTE Documentation of Mechanical Device: Venous foot pump, device Consult Discharge Plan - Plan Referrals: Jm Gomez MD [Emergency Midlevel Provider] - Bertha Aleman DO [Primary Care Provider] -
[2017-04-22] MEDS: Acetaminophen 325 MG TABLET PO PRN (19:56)
[2017-04-23] MEDS: *HR* OxyCODONE/APAP 10/325 TABLET PO PRN ×3 (01:01→10:28)
[2017-04-23 05:18] LABS: Hematocrit 31.3 % (35.3-44.9); Mean Corpuscular HGB Conc 31.9 g/dL (31.6-35.5); Mean Corpuscular Hemoglobin 28.6 pg (28.0-33.3); Mean Corpuscular Volume 89.4 fL (83.0-100.0); Mean Platelet Volume 10.3 fL (9.4-12.4); Platelet Count 351 K/mcL (140-400); Red Cell Distribution Width 15.1 % (11.5-14.5)
[2017-04-23 05:34] LABS: Albumin/Globulin Ratio 0.5 (1.1-2.2); Bilirubin,Direct 0.7 mg/dL (0.0-0.5); Bilirubin,Indirect 0.5 mg/dL (0.0-1.2); Bilirubin,Total 1.2 mg/dL (0.2-1.2); Globulin 3.7 g/dL (2.4-3.5); Total Protein 5.6 g/dL (6.0-8.3)
[2017-04-23 05:35] LABS: Albumin 1.9 g/dL (3.5-5.0)
[2017-04-23 05:36] LABS: Lymphocytes # 0.9 K/mcL (0.6-4.6); Monocytes # 0.9 K/mcL (0.0-1.3); Neutrophils # 13.6 K/mcL (1.6-8.9); Platelet Estimate Normal (Normal)
[2017-04-23 05:37] LABS: Polychromasia 1+ (Not Present); Reactive Lymphocytes Present (Not Present)
--- NOTE | 2017-04-23 13:40 | Anesthesia Evaluation PreOp ---
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 Significant HX Other Medical History: Thyroid, Other (Obese) Anesthesia History: No Prior Anesthetic Complications : No Alcohol Use: none Drug use: none Medications and Allergies Citalopram Hydrobromide [Citalopram HBr] 10 mg PO DAILY 04/16/17 [History] Levothyroxine [Synthroid] 50 mcg PO DAILY 04/16/17 [History] Metoprolol XL (24 HR) Succ [Toprol XL] 25 mg PO DAILY 04/16/17 [History] Allergies Penicillins Allergy (Verified 04/16/17 13:24) Rash - Meds/Allergy Pre-op Review Medications Reviewed: Yes Allergies Reviewed: Yes Beta Blockers on Current Med List: No Anesthesia Results - Labs 04/23/17 04:45 04/22/17 04:11 Anesthesia Exam O2 Sat O2 Sat by Pulse Oximetry 98 O2 Sat by Pulse Oximetry 96 O2 Sat by Pulse Oximetry 99 O2 Sat by Pulse Oximetry 99 O2 Sat by Pulse Oximetry 99 O2 Sat by Pulse Oximetry 98 Vital Signs Temp Pulse Resp BP Pulse Ox 98.2 F 89 18 202/104 95 04/16/17 13:24 04/16/17 13:24 04/16/17 13:24 04/16/17 13:24 04/16/17 13:24 Height: 5'2 Weight: 196 lbs NPO (# of Hours): MN Pain Scale: 2 - HEENT Pupil (Motor): Pupils equal, EOMI Mallampati: II Teeth: Normal Oral Opening: Greater than 3 - [employer]UP ARTIST LOC: Oriented [employer]IST Motor: Normal RUE, Normal LUE, Normal RLE, Normal LLE, Normal Face [employer]IST Sensory: Normal: RUE, LUE, RLE, LLE, Face - Cardiac Rhythm: Regular Murmur: None JVD: No Carotid Bruit: No - Pulmonary Breath Sounds: bilateral Clear Respiratory Effort: Symmetrical Anesthesia Assess/Plan ASA Score: 2 Anesthetic Plan: General Monitoring Plan: Standard Monitors Recovery Plan: PACU (Discused GA, agrees to proceed)
--- NOTE | 2017-04-23 13:53 | General Surgery Progress Note ---
Date of Encounter: 04/23/17 Time of Encounter: 13:42 Subjective Narrative: POD #6 - patient with persistent RUQ abdominal pain. No fever, chills, nausea or vomiting. Nursing has noted increased redness around the subcostal incision and new onset brown serous drainage through the medial portion of the incision. Afebrile, 98.0; pulse 80-96; respiratory rate 18; blood pressure 167/64. SPO2 98% but requiring 3 L/m nasal cannula CT of the abdomen and pelvis completed this morning was reviewed with [facility] after they contacted me with results. Dr Owens, describes extra - luminal oral contrast in the gallbladder fossa consistent with injury to the adjacent small bowel. The contrast, gas and fluid appears to be localized to the right upper quadrant. These findings were discussed with the patient with recommendation for surgery. An exploratory celiotomy with possible small bowel repair versus resection and possible ileostomy was discussed. Risks of such surgery include hemorrhage , infection, intra-abdominal abscess, additional injury to adjacent structures. If repair or a small bowel anastomosis is attempted, possible leak and recurrent abscess requiring further surgery is possible. Alternatives to surgery here at [facility] include transfer to at [facility] for further evaluation and treatment. This option was declined by the patient. The patient 's was present during my discussion the CT findings and the recommendations for surgery. Other risks of surgery include respiratory failure , pneumonia, cardiac arrhythmia and possible DE. The surgery is planned through the subcostal incision as the more caudal abdomen is extensively scarred and expected to have dense adhesions related to the patient prior history of surgery and prolonged wound healing as discussed in the H&P. Consent has been obtained. Objective Vital Signs - Last 8 Hours Temp Pulse Resp BP Pulse Ox 04/23/17 10:40 98 F 96 18 167/64 98 04/23/17 06:57 98.8 F 90 16 103/69 96 Intake and Output 04/22/17 04/23/17 04/23/17 23:59 07:59 15:59 Intake Total 240 / 240 0 / 0 Output Total 0 / 0 693 / 693 448 / 448 Balance 240 / 240 -693 / -693 -448 / -448 Intake: Oral 240 / 240 0 / 0 Output: Urine 0 / 0 675 / 675 400 / 400 Wound Drainage 0 / 0 48 / 48 Right Abdomen 0 / 0 48 / 48 Other: Meal Dinner Breakfast Percent of Meal Consumed 20% 0% - Labs 04/23/17 04:45 04/22/17 04:11 Diabetes panel 04/23/17 Range/Units 04:45 AST 62 H (5-34) Units/L ALT 83 H (0-55) Units/L Alkaline Phosphatase 246 H (38-126) Units/L Albumin 1.9 L (3.5-5.0) g/dL Calcium panel 04/23/17 Range/Units 04:45 Albumin 1.9 L (3.5-5.0) g/dL Adrenal panel 04/23/17 Range/Units 04:45 Total Bilirubin 1.2 (0.2-1.2) mg/dL AST 62 H (5-34) Units/L ALT 83 H (0-55) Units/L Alkaline Phosphatase 246 H (38-126) Units/L Albumin 1.9 L (3.5-5.0) g/dL - VTE Documentation of Mechanical Device: Venous foot pump, device Consult Discharge Plan - Plan Referrals: Jm Gomez MD [Emergency Midlevel Provider] - Bertha Aleman DO [Primary Care Provider] -
[2017-04-23] MEDS ORDERED: MetroNIDAZOLE 500 MG/100 ML 500 MG/100 ML BAG IVPB STA (13:54)
[2017-04-23] MEDS ORDERED: Bupivacaine/EPI 1:200k 0.25%PF 30 ML VIAL ONE (14:20)
[2017-04-23] MEDS ORDERED: *HR* Propofol 200 MG/20 ML VIAL IVP ONE (14:37)
[2017-04-23] MEDS ORDERED: *HR* FentaNYL (PF) 100 MCG/2 ML VIAL ONE (14:37)
[2017-04-23] MEDS ORDERED: Dexamethasone 4 MG/ML VIAL ONE (14:38)
[2017-04-23] MEDS ORDERED: Lidocaine -MPF 2% 2 ML VIAL ONE (14:38)
[2017-04-23] MEDS ORDERED: Ondansetron 4 MG/2 ML VIAL ONE ×2 (14:38→18:18)
[2017-04-23] MEDS ORDERED: *HR* Rocuronium Bromide 50 MG/5 ML VIAL ONE ×2 (14:38→16:05)
[2017-04-23] MEDS ORDERED: *HR* Succinylcholine 200 MG/10 ML VIAL IVP ONE (14:38)
[2017-04-23] MEDS ORDERED: Famotidine 20 MG/2 ML VIAL ONE (14:42)
[2017-04-23] MEDS ORDERED: Acetaminophen IV 1,000 MG/100 ML INFUS..BTL ONE (14:42)
[2017-04-23] MEDS ORDERED: Neostigmine Methylsulfate 3 MG/3 ML SYRINGE ONE (16:41)
[2017-04-23] MEDS ORDERED: *HR* HYDROmorphone 2 MG/ML SYRINGE ONE (16:42)
[2017-04-23] MEDS ORDERED: Naloxone 0.4 MG/ML INJ IVP PRN ×2 (17:47→19:00)
[2017-04-23] MEDS ORDERED: *HR* Morphine 30 MG/ 30 ML PCA IVC PRN ×2 (17:47→19:00)
[2017-04-23] MEDS ORDERED: Ringers Solution, Lactated 500 ML IVC ONE ×2 (17:50→17:55)
[2017-04-23] MEDS ORDERED: Ringers Solution, Lactated 1,000 ML ONE (17:54)
[2017-04-23] MEDS ORDERED: *HR* Metoprolol 5 MG/5 ML VIAL IVP SCH (18:00)
[2017-04-23] MEDS ORDERED: 0.9 % Sodium Chloride 1,000 ML IVC SCH (18:00)
--- NOTE | 2017-04-23 18:00 | Operative Note ---
Date of procedure: 04/23/17 Pre-op diagnosis: small bowel perforation Post-op diagnosis: same Procedure: explor celiotomy with extended lysis adhesions (90 min); small bowel resection with stapled entero-enterostom, placement CVL left subclavian v. Complications: none apparent Anesthesia: TUCKER Surgeon: Jm Gomez Estimated blood loss (cc): 250 IV fluids (cc): 1,000 Specimen: segments small bowel Condition: stable Disposition: PACU Procedure in Detail: The patient was brought to the operating room where she was placed supine upon the operating room table. The patient was appropriately identified as to person and procedure. The accuracy of this information was confirmed by the procedure team. The patient was then intubated and anesthetized under the supervision of Dr. Juan Antonio Leslie. The randal from the subcostal incision were removed. The LARISSA drain was removed. On removal of the LARISSA, obvious succus entericus was draining through the LARISSA site. The abdomen was prepped and draped in usual sterile fashion. On removing the skin randal the skin edges and the subcutaneous tissue demonstrated no evidence of healing. The wound was retracted open, the fascial sutures were cut and removed. Exposure was facilitated by a self-retaining Omni tract retractor. The subhepatic space was entered and lysis of adhesions commenced. The liver was mobilized from the lateral abdominal wall as well as from the right hemidiaphragm. Several matted loops of small bowel were encountered and as the lysis of adhesions proceeded and the small bowel loops were mobilized a perforated loop of jejunum became obvious. This loop of jejunum was very close to the ostial incision and may have been injured during closure of the open cholecystectomy completed approximately 6 days prior. Additional lysis of adhesions was necessary to mobilize these loops of bowel. The perforated segment was excised using the Ethicon 75 mm linear stapler applied proximal and distal to the perforation. It was necessary to mobilize the small bowel until the 2 loops could be placed [id number]. 2 additional resections of the proximal and distal segment of small bowel was completed with application of the 75 mm Ethicon linear stapler. This was felt to be necessary as a 2 ends appeared to be somewhat dusky once the lysis of adhesions and mobilization of the small bowel had been completed. The 2 loops were placed [id number] and secured in position with interrupted seromuscular 3-0 silk. Closed and wounds of the bowel were opened, a side-to- side, functional end to end stapled anastomosis was created with the Ethicon 75 mm linear stapler. The remaining enterotomies were closed with interrupted 3-0 silk reinforced by randal using an Ethicon TX 60 mm stapler, using the blue cartridge. The mesenteric defect was closed with interrupted 3-0 silk. The abdomen was copiously irrigated with warm sterile saline. Examination of the rest the abdomen was limited by dense adhesions related to the patient's previous surgeries which included a JEFF/BSO complicated by a perforation of the rectum requiring a Richard procedure which was ultimately reversed approximately 1 year later. That surgery was complicated by an extended period of failure to heal with extensive scarring and intra-abdominal adhesions. Hemostasis was assured. The abdomen was then closed. The posterior and anterior fascias of the rectus abdominous were approximated in a single layer using interrupted [id number] 0 Vicryl. The subcutaneous tissue was left open as was the skin. Subcutaneous tissues irrigated with warm sterile saline. Interrupted vertical mattress 3-0 Prolene was placed in the skin edges but not tied. The suture and was were secured to the anterior abdominal wall with Steri-Strips. The sutures would be used for delayed primary closure in 5-6 days depending on the patient's recovery from this surgery. Fluffy gauze dressing was applied followed by Medipore tape. The surgery re scrubbed and was regowned and gloved in preparation for placement of a central venous line. The left chest and infraclavicular region was prepped with chlorhexidine. A whole-body drape was used. The patient was still anesthetized and was placed in Trendelenburg. Using an 18-gauge needle, the left subclavian vein was located without difficulty. At no time was air aspirated. Using a technique described by Cassandra, a guidewire was inserted, the needle was removed. The skin tract was incised and dilated followed by placement of a 16 cm, 3 lumen, 7Fr Arrowgard catheter. The catheter was secured to the infraclavicular skin at 15 cm using 3-0 silk. A Biopatch was applied followed by an OpSite dressing. The 3 ports aspirated easily for blood and were flushed with sterile saline. A portable chest x-ray was ordered for final check on placement be obtained once the patient is transported to PACU. These x-rays will be reviewed on completion. The patient tolerated the procedures well and was transported to PACU in stable condition. Needle, sponge, and instrument counts were correct at the close of the case.
[2017-04-23] MEDS ORDERED: Ondansetron 4 MG/2 ML VIAL IVP ONE (18:18)
[2017-04-23] MEDS ORDERED: *HR* Promethazine 25 MG/ML VIAL IVP PRN (18:22)
--- NOTE | 2017-04-23 18:23 | Anesthesia Evaluation Post Op ---
Date of Encounter: 04/23/17 Time of Encounter: 18:30 - Vital Signs Vital Signs: Vital Signs/O2 Sat/Glucose, Most Current Temp Pulse Resp BP Pulse Ox 04/23/17 18:12 76 14 131/71 98 04/23/17 18:02 72 12 125/60 98 04/23/17 17:52 97.8 F 78 10 115/71 99 - Lungs Lungs: Clear Ascult./Percussion - Airway Airway: Non-obstructed - Cardiovascular Regular Rate - Mental Status Mental Status: Alert & Oriented, Answers Appropriately - Pain Pain Scale: 1 - Nausea Vomiting Nausea Vomiting: Not Present - Hydration Hydration: NPO, Ice chips - Discharge PostOp Status: Transfer Patient to floor
[2017-04-23] MEDS ORDERED: Ondansetron 4 MG/2 ML VIAL IVP PRN (19:00)
[2017-04-23] MEDS: 0.9 % Sodium Chloride 1,000 ML IVC SCH (20:30)
[2017-04-23] MEDS: *HR* Metoprolol 5 MG/5 ML VIAL IVP SCH (23:20)
[2017-04-24] MEDS: 0.9 % Sodium Chloride 1,000 ML IVC SCH (03:30)
[2017-04-24 03:45] LABS: Basophils # 0.1 K/mcL (0.0-0.2); Basophils % 0.2 %; Hematocrit 25.1 % (35.3-44.9); Immature Granulocytes % 3.8 % (0-4); Lymphocytes # 0.6 K/mcL (0.6-4.6); Lymphocytes % 2.4 %; Mean Corpuscular HGB Conc 31.9 g/dL (31.6-35.5); Mean Corpuscular Hemoglobin 28.2 pg (28.0-33.3); Mean Corpuscular Volume 88.4 fL (83.0-100.0); Mean Platelet Volume 9.8 fL (9.4-12.4); Monocytes # 1.3 K/mcL (0.0-1.3); Monocytes % 5.5 %; Neutrophils # 21.2 K/mcL (1.6-8.9); Platelet Count 393 K/mcL (140-400); Red Blood Count 2.84 M/mcL (3.82-4.97); Red Cell Distribution Width 15.2 % (11.5-14.5); Segmented Neutrophils % 88.1 %
[2017-04-24 04:04] LABS: Alanine Aminotransferase 57 Units/L (0-55); Albumin/Globulin Ratio 0.5 (1.1-2.2); Alkaline Phosphatase 174 Units/L (38-126); Aspartate Amino Transferase 46 Units/L (5-34); BUN/Creatinine Ratio 11 (6-26); Bilirubin,Total 0.7 mg/dL (0.2-1.2); Blood Urea Nitrogen 7 mg/dL (7-20); Calcium 7.8 mg/dL (8.6-10.8); Carbon Dioxide 25 mEq/L (19-29); Chloride 102 mEq/L (98-109); Glucose 136 mg/dL (70-99); Osmolality,Calculated 282 (280-300); Potassium 4.2 mEq/L (3.5-4.5); Sodium 136 mEq/L (136-145); Total Protein 4.5 g/dL (6.0-8.3); eGFR For African Americans > 60 (> 60); eGFR For Non-African Americans > 60 (> 60)
[2017-04-24 04:06] LABS: Large Platelets Present (Not Present); Platelet Estimate Normal (Normal)
[2017-04-24 04:09] LABS: Albumin 1.5 g/dL (3.5-5.0)
[2017-04-24] MEDS: *HR* Metoprolol 5 MG/5 ML VIAL IVP SCH ×3 (05:42→22:32)
[2017-04-24] MEDS ORDERED: Levothyroxine Sodium 100 MCG VIAL IVP SCH ×2 (06:30)
[2017-04-24] MEDS ORDERED: Pantoprazole 40 MG VIAL IVP SCH ×2 (09:00)
[2017-04-24] MEDS ORDERED: Fluconazole 100 MG/50 ML 100 MG/50 ML BAG IVPB SCH (10:45)
[2017-04-24] MEDS ORDERED: *HR* Metoprolol 5 MG/5 ML VIAL IVP SCH (10:45)
[2017-04-24] MEDS ORDERED: MetroNIDAZOLE 500 MG/100 ML 500 MG/100 ML BAG IVPB SCH (11:00)
--- NOTE | 2017-04-24 11:48 | General Surgery Progress Note ---
Date of Encounter: 04/24/17 Time of Encounter: 11:00 Subjective Narrative: POD #1 - s/p explor celiotomy with extended lysis adhesions, small bowel resection with stapled entero-enterostomy patient feeling better. Less right upper quadrant abdominal pain. Patient was confused last evening following surgery - Nursing described patient "pulling at everything" including dunlap, IVs, oxygen and CVL. This prompted transfer to ICU for close monitoring and care - the confusion has resolved patient c/o sore throat - likely due to recent intubation during surgery and oral candidiasis Lungs clear to auscultation Abdomen: soft with jacqueline incisional tenderness but the erythema right flank and surrounding the incision much improved. wound open (fascia closed). The exposed subcutaneous tissue is healthy, no pus encountered. Urine output approximately 1075mL with urine output via the catheter at 275 mL Laboratories: White count 24.1, likely response to surgery H&H depressed at 8.0 and 25.1 - likely due to combined effects of intraoperative blood losses as well as perioperative fluids Platelet count 393,000; neutrophil count 21.2 Electrolytes, BUN, creatinine within normal limits AST 46, ALT 57, alkaline phosphatase 174, bilirubin 0.7 - all improved postop Serum protein depressed at 4.5, albumin 1.5 - TPN to be initiated today Impression/pLAN: Postoperative day 1, status post exploratory celiotomy for small bowel perforation. Acceptable status Transient postoperative confusion resolved Leukocytosis and anemia being monitored Hypoproteinemia/hypoalbuminemia to be addressed via TPN as it is anticipated the patient will be nothing by mouth for several more days. Transfer to general bed Add diflucan to ATB regimen Consult Wound Care/Marissa River for assistance managing the open subcostal incision. Objective Vital Signs - Last 8 Hours Temp Pulse Resp BP Pulse Ox 04/24/17 11:10 98.9 F 04/24/17 11:00 99 20 137/70 100 04/24/17 10:00 96 18 116/58 99 04/24/17 09:00 92 20 109/62 97 04/24/17 08:00 85 20 117/62 98 04/24/17 07:59 90 04/24/17 07:39 97 04/24/17 07:10 97.9 F 04/24/17 07:00 82 18 115/66 100 04/24/17 06:00 86 16 114/64 100 04/24/17 05:00 96 16 113/63 99 04/24/17 04:43 98.9 F 04/24/17 04:00 116 16 125/63 99 04/24/17 03:56 125 Intake and Output 04/23/17 04/24/17 04/24/17 23:59 07:59 15:59 Intake Total 500 / 500 1000 / 1000 0 / 0 Output Total 525 / 525 800 / 800 200 / 200 Balance -25 / -25 200 / 200 -200 / -200 Intake: IV Fluids 500 / 500 1000 / 1000 0.9 % Sodium Chloride 1, 1000 / 1000 000 ML @ 100 mls/hr IVC . Q10H [facility] Rx#:[id number] Lactated Ringers 500 ML @ 500 / 500 1000 mls/hr IVC .Q30M [facility] Rx#:[id number] Oral 0 / 0 Output: Estimated Blood Loss 250 / 250 Urine Amount (Catheter) 275 / 275 Catheter 800 / 800 200 / 200 Other: Weight 91.711 kg Blood Glucose* 148 - Labs 04/24/17 03:33 04/24/17 03:33 Diabetes panel 04/24/17 Range/Units 03:33 Sodium 136 (136-145) mEq/L Potassium 4.2 (3.5-4.5) mEq/L Chloride 102 (98-109) mEq/L Carbon Dioxide 25 (19-29) mEq/L BUN 7 (7-20) mg/dL Creatinine 0.65 (0.57-1.11) mg/dL Glucose 136 H (70-99) mg/dL Calcium 7.8 L (8.6-10.8) mg/dL AST 46 H (5-34) Units/L ALT 57 H (0-55) Units/L Alkaline Phosphatase 174 H (38-126) Units/L Albumin 1.5 L D (3.5-5.0) g/dL Calcium panel 04/24/17 Range/Units 03:33 Calcium 7.8 L (8.6-10.8) mg/dL Albumin 1.5 L D (3.5-5.0) g/dL Pituitary panel 04/24/17 Range/Units 03:33 Sodium 136 (136-145) mEq/L Potassium 4.2 (3.5-4.5) mEq/L Chloride 102 (98-109) mEq/L Carbon Dioxide 25 (19-29) mEq/L BUN 7 (7-20) mg/dL Creatinine 0.65 (0.57-1.11) mg/dL Glucose 136 H (70-99) mg/dL Calcium 7.8 L (8.6-10.8) mg/dL Adrenal panel 04/24/17 Range/Units 03:33 Sodium 136 (136-145) mEq/L Potassium 4.2 (3.5-4.5) mEq/L Chloride 102 (98-109) mEq/L Carbon Dioxide 25 (19-29) mEq/L BUN 7 (7-20) mg/dL Creatinine 0.65 (0.57-1.11) mg/dL Glucose 136 H (70-99) mg/dL Calcium 7.8 L (8.6-10.8) mg/dL Total Bilirubin 0.7 (0.2-1.2) mg/dL AST 46 H (5-34) Units/L ALT 57 H (0-55) Units/L Alkaline Phosphatase 174 H (38-126) Units/L Albumin 1.5 L D (3.5-5.0) g/dL - VTE Documentation of Mechanical Device: Venous foot pump, device Consult Discharge Plan - Plan Referrals: Jm Gomez MD [Emergency Midlevel Provider] - Bertha Aleman DO [Primary Care Provider] -
[2017-04-24] MEDS ORDERED: D10% in Water 500 ML IVC PRN ×2 (12:30→17:20)
[2017-04-24] MEDS ORDERED: Nystatin SUSP 5 ML UD.LIQ PO SCH (13:00)
[2017-04-24] MEDS ORDERED: 0.9 % Sodium Chloride 1,000 ML IVC SCH (13:15)
[2017-04-24] MEDS ORDERED: Naloxone 0.4 MG/ML INJ IVP PRN (13:15)
[2017-04-24] MEDS: MetroNIDAZOLE 500 MG/100 ML 500 MG/100 ML BAG IVPB SCH ×2 (16:41→22:34)
[2017-04-24] MEDS: Nystatin SUSP 5 ML UD.LIQ PO SCH ×2 (16:41→21:13)
[2017-04-24] MEDS ORDERED: Clinimix E 5%-15% SOLUTION 2,000 ML with MVI, adult with vitamin K 10 ML IVC SCH ×2 (17:00)
[2017-04-24] MEDS: *HR* Morphine 30 MG/ 30 ML PCA IVC PRN (18:36)
[2017-04-25] MEDS: *HR* Metoprolol 5 MG/5 ML VIAL IVP SCH ×4 (04:57→23:43)
[2017-04-25] MEDS: MetroNIDAZOLE 500 MG/100 ML 500 MG/100 ML BAG IVPB SCH ×4 (04:57→23:42)
[2017-04-25] MEDS: 0.9 % Sodium Chloride 1,000 ML IVC SCH (05:02)
[2017-04-25] MEDS: Levothyroxine Sodium 100 MCG VIAL IV SCH (06:14)
[2017-04-25] MEDS ORDERED: Levothyroxine Sodium 100 MCG VIAL IV SCH (06:30)
[2017-04-25 07:47] LABS: Hemoglobin 7.2 g/dL (11.5-15.4); Nucleated Red Blood Cells 0.1 /100 WBC (0); Red Cell Distribution Width 15.9 % (11.5-14.5)
[2017-04-25 07:49] LABS: Hematocrit 22.4 % (35.3-44.9); Mean Corpuscular HGB Conc 32.1 g/dL (31.6-35.5); Mean Corpuscular Hemoglobin 29.1 pg (28.0-33.3); Mean Corpuscular Volume 90.7 fL (83.0-100.0); Mean Platelet Volume 10.2 fL (9.4-12.4); Platelet Count 346 K/mcL (140-400); Red Blood Count 2.47 M/mcL (3.82-4.97)
[2017-04-25] MEDS ORDERED: D5% in Water 1,000 ML IVC PRN (08:15)
[2017-04-25] MEDS ORDERED: Dextrose Gel 15 GM PO PRN (08:15)
[2017-04-25] MEDS ORDERED: *HR* Dextrose 50 % in Water (Syg) 50 ML SYRINGE IVP PRN (08:15)
[2017-04-25 08:23] LABS: Lymphocytes # 1.1 K/mcL (0.6-4.6); Monocytes # 1.1 K/mcL (0.0-1.3); Neutrophils # 24.8 K/mcL (1.6-8.9)
[2017-04-25] MEDS: Pantoprazole 40 MG VIAL IVP SCH (08:23)
[2017-04-25 08:24] LABS: Platelet Estimate Normal (Normal)
[2017-04-25] MEDS: Nystatin SUSP 5 ML UD.LIQ PO SCH ×4 (08:25→21:17)
[2017-04-25] MEDS: Fluconazole 100 MG/50 ML 100 MG/50 ML BAG IVPB SCH (08:25)
[2017-04-25] MEDS: Insulin LISPRO 300 UNITS/3 ML VIAL SQ SCH ×5 (09:17→23:43)
[2017-04-25 09:20] LABS: Alanine Aminotransferase 42 Units/L (0-55); Albumin 1.6 g/dL (3.5-5.0); Albumin/Globulin Ratio 0.5 (1.1-2.2); Alkaline Phosphatase 203 Units/L (38-126); Aspartate Amino Transferase 31 Units/L (5-34); BUN/Creatinine Ratio 19 (6-26); Bilirubin,Direct 0.3 mg/dL (0.0-0.5); Bilirubin,Indirect 0.1 mg/dL (0.0-1.2); Bilirubin,Total 0.4 mg/dL (0.2-1.2); Blood Urea Nitrogen 13 mg/dL (7-20); Carbon Dioxide 25 mEq/L (19-29); Chloride 103 mEq/L (98-109); Globulin 3.4 g/dL (2.4-3.5); Glucose 158 mg/dL (70-99); Magnesium 1.7 mg/dL (1.6-2.6); Osmolality,Calculated 283 (280-300); Phosphorous 2.9 mg/dL (2.3-4.7); Potassium 4.4 mEq/L (3.5-4.5); Sodium 135 mEq/L (136-145); Triglycerides 165 mg/dL (< 150); eGFR For African Americans > 60 (> 60); eGFR For Non-African Americans > 60 (> 60)
[2017-04-25] MEDS ORDERED: 0.9 % Sodium Chloride Mini Bag 100 ML ONE ×2 (10:40→13:45)
[2017-04-25] MEDS: *HR* Morphine 30 MG/ 30 ML PCA IVC PRN (12:09)
[2017-04-25] MEDS ORDERED: Furosemide 40 MG/4 ML VIAL IVP ONE (14:27)
[2017-04-25] MEDS: *HR* HYDROmorphone 20 MG/20 ML PCA IVC PRN (16:37)
[2017-04-25] MEDS ORDERED: Clinimix E 5%-15% SOLUTION 2,000 ML with MVI, adult with vitamin K 10 ML IVC SCH (17:00)
--- NOTE | 2017-04-25 17:30 | General Surgery Progress Note ---
Date of Encounter: 04/25/17 Time of Encounter: 14:25 Subjective Patient reports: no new complaints Narrative: Postoperative day 2: Status post exploratory celiotomy, extended lysis of adhesions with small bowel resection/stapled enteroenterostomy Afebrile, 98.2; pulse 81; respirations 18; blood pressure 124/79; SPO2 97% Patient somewhat confused; but answers questions appropriately. The confusion may be due to the CNA CAREGIVER morphine. Lungs: Clear; she denies pain on deep inspiration Cardiac: Regular rate, no appreciable murmur Abdomen: Soft, nontender, quiet. Subcostal incision appears clean and dry though copious serous drainage is noted. Appreciate assistance from Marissa River, wound care/enterostomal nurse, who has applied Kaltostat to the incision. Laboratories: Worsening leukocytosis, 27.0; hemoglobin and hematocrit have fallen to 7.2 and 22.4, respectively. Neutrophils of increased to 24.8 Electrolytes, BUN, creatinine - acceptable, sodium 135; glucose 158; Accu- Cheks 170s -208. Total bili 0.4, AST 31, ALT 42, alkaline phosphatase 203 Protein 5.0, albumin 1.6 Impression/Plan: Postoperative day 2: Patient demonstrating intermittent confusion, thought to be due to CNA CAREGIVER morphine. We will trial Dilaudid instead Postoperative anemia, hemoglobin 7.2, hematocrit 22.4 - transfuse 2 units packed red cells Hyponatremia, nonsymptomatic Hypoproteinemia/ hypo albuminemia - TPN initiated Elevated Accu-Cheks secondary to TPN; high sliding scale insulin coverage initiated Increased leukocytosis - continue IV antibiotics; repeat CBC in a.m. Pathology acute serositis with serosal adhesions; definitive perforation not identified but evident at the time of surgery Objective Vital Signs - Last 8 Hours Temp Pulse Resp BP Pulse Ox 04/25/17 17:10 98.2 F 18 137/84 04/25/17 13:55 98.3 F 81 18 126/72 96 04/25/17 13:36 98.3 F 82 18 124/79 97 04/25/17 13:30 98.3 F 83 18 117/78 04/25/17 11:08 98.2 F 82 18 115/76 99 04/25/17 10:53 98.2 F 93 18 103/58 97 Intake and Output 04/25/17 04/25/17 04/25/17 07:59 15:59 23:59 Intake Total 650 / 650 1650 / 1650 300 / 300 Output Total 400 / 400 Balance 250 / 250 1650 / 1650 300 / 300 Intake: IV Fluids 650 / 650 1350 / 1350 0.9 % Sodium Chloride 1, 1000 / 1000 000 ML @ 25 mls/hr IVC . Q24H [facility] Rx#:[id number] Cipro Premix 400 MG/200 200 / 200 200 / 200 ML 400 mg In 200 ml @ 200 mls/hr IVPB Q12H [facility] Rx# :[id number] Intralipid 20% 250 ML @ 250 / 250 21 mls/hr IVPB DAILY@1700 [facility] Rx#:[id number] Diflucan 100 MG/50 ML 100 50 / 50 mg In 50 ml @ 50 mls/hr IVPB DAILY [facility] Rx#: [id number] Flagyl Premix 500 MG/100 200 / 200 100 / 100 ML 500 mg In 100 ml @ 100 mls/hr IVPB Q6H [facility] Rx#: [id number] Oral 0 / 0 Blood Product 300 / 300 300 / 300 Rbcs Leuko Poor As-1 300 / 300 Unit [id number] Rbcs Leuko Poor As-3 0 / 0 300 / 300 Unit [id number] Output: Catheter 400 / 400 Other: Meal NPO NPO Weight 88.3 kg Blood Glucose* 171 176 Patient Weight 04/25/17 23:59 Weight 88.3 kg - Labs 04/25/17 06:30 04/25/17 08:32 Diabetes panel 04/25/17 Range/Units 08:32 Sodium 135 L (136-145) mEq/L Potassium 4.4 (3.5-4.5) mEq/L Chloride 103 (98-109) mEq/L Carbon Dioxide 25 (19-29) mEq/L BUN 13 (7-20) mg/dL Creatinine 0.68 (0.57-1.11) mg/dL Glucose 158 H (70-99) mg/dL Calcium 8.0 L (8.6-10.8) mg/dL AST 31 (5-34) Units/L ALT 42 (0-55) Units/L Alkaline Phosphatase 203 H (38-126) Units/L Albumin 1.6 L (3.5-5.0) g/dL Triglycerides 165 H (< 150) mg/dL Calcium panel 04/25/17 Range/Units 08:32 Calcium 8.0 L (8.6-10.8) mg/dL Phosphorus 2.9 (2.3-4.7) mg/dL Albumin 1.6 L (3.5-5.0) g/dL Pituitary panel 04/25/17 Range/Units 08:32 Sodium 135 L (136-145) mEq/L Potassium 4.4 (3.5-4.5) mEq/L Chloride 103 (98-109) mEq/L Carbon Dioxide 25 (19-29) mEq/L BUN 13 (7-20) mg/dL Creatinine 0.68 (0.57-1.11) mg/dL Glucose 158 H (70-99) mg/dL Calcium 8.0 L (8.6-10.8) mg/dL Adrenal panel 04/25/17 Range/Units 08:32 Sodium 135 L (136-145) mEq/L Potassium 4.4 (3.5-4.5) mEq/L Chloride 103 (98-109) mEq/L Carbon Dioxide 25 (19-29) mEq/L BUN 13 (7-20) mg/dL Creatinine 0.68 (0.57-1.11) mg/dL Glucose 158 H (70-99) mg/dL Calcium 8.0 L (8.6-10.8) mg/dL Total Bilirubin 0.4 (0.2-1.2) mg/dL AST 31 (5-34) Units/L ALT 42 (0-55) Units/L Alkaline Phosphatase 203 H (38-126) Units/L Albumin 1.6 L (3.5-5.0) g/dL - VTE Documentation of Mechanical Device: Venous foot pump, device Consult Discharge Plan - Plan Referrals: Jm Gomez MD [Emergency Midlevel Provider] - Bertha Aleman DO [Primary Care Provider] -
[2017-04-26] MEDS: Insulin LISPRO 300 UNITS/3 ML VIAL SQ SCH ×5 (04:42→21:09)
[2017-04-26] MEDS: MetroNIDAZOLE 500 MG/100 ML 500 MG/100 ML BAG IVPB SCH ×3 (04:44→16:54)
[2017-04-26] MEDS: 0.9 % Sodium Chloride 1,000 ML IVC SCH ×2 (04:46→15:10)
[2017-04-26 05:00] LABS: Hematocrit 31.3 % (35.3-44.9); Mean Corpuscular HGB Conc 32.3 g/dL (31.6-35.5); Mean Corpuscular Hemoglobin 28.8 pg (28.0-33.3); Mean Corpuscular Volume 89.2 fL (83.0-100.0); Mean Platelet Volume 9.7 fL (9.4-12.4); Nucleated Red Blood Cells 0.2 /100 WBC (0); Platelet Count 347 K/mcL (140-400); Red Blood Count 3.51 M/mcL (3.82-4.97); Red Cell Distribution Width 16.9 % (11.5-14.5)
[2017-04-26 05:01] LABS: Hemoglobin 10.1 g/dL (11.5-15.4)
[2017-04-26] MEDS: *HR* Metoprolol 5 MG/5 ML VIAL IVP SCH ×4 (05:02→22:41)
[2017-04-26 05:28] LABS: BUN/Creatinine Ratio 25 (6-26); Blood Urea Nitrogen 16 mg/dL (7-20); Carbon Dioxide 27 mEq/L (19-29); Chloride 102 mEq/L (98-109); Glucose 130 mg/dL (70-99); Magnesium 1.8 mg/dL (1.6-2.6); Osmolality,Calculated 283 (280-300); Potassium 4.3 mEq/L (3.5-4.5); Sodium 135 mEq/L (136-145); eGFR For African Americans > 60 (> 60); eGFR For Non-African Americans > 60 (> 60)
[2017-04-26 05:32] LABS: Anisocytosis 1+ (Not Present); Eosinophils # 0.6 K/mcL (0.0-0.6); Large Platelets Present (Not Present); Lymphocytes # 0.6 K/mcL (0.6-4.6); Monocytes # 1.1 K/mcL (0.0-1.3); Neutrophils # 24.6 K/mcL (1.6-8.9); Platelet Estimate Normal (Normal)
[2017-04-26 05:33] LABS: Dohle Bodies Present (Not Present); Microcytosis Present (Not Present); Polychromasia 1+ (Not Present); Toxic Granulation Present (Not Present)
[2017-04-26] MEDS: Levothyroxine Sodium 100 MCG VIAL IV SCH (06:12)
[2017-04-26] MEDS ORDERED: Furosemide 40 MG/4 ML VIAL IVP ONE (07:34)
[2017-04-26] MEDS: Pantoprazole 40 MG VIAL IVP SCH (08:03)
[2017-04-26] MEDS: Nystatin SUSP 5 ML UD.LIQ PO SCH ×4 (08:03→21:10)
[2017-04-26] MEDS: Fluconazole 100 MG/50 ML 100 MG/50 ML BAG IVPB SCH (08:03)
--- NOTE | 2017-04-26 10:08 | General Surgery Progress Note ---
Date of Encounter: 04/26/17 Time of Encounter: 09:59 Subjective Patient reports: no new complaints Narrative: POD #3 - status post exploratory celiotomy with standard lysis of adhesions, small bowel resection with stapled enteroenterostomy Patient with no new complaints; confusion appears to be cleared. [employer] Dilaudid providing adequate pain control. Afebrile, 98.2; pulse 60, with a range as high as 90; respiratory 16-18; blood pressure 110/72. SPO2 on 2 L per nasal cannula 94-98%. Lungs: Clear, no obvious pain in the inspiration Cardiac: Regular rate, no appreciable murmurs Abdomen: Subcostal tenderness as expected; the rest of the abdomen nontender. No audible bowel sounds to my exam, however, nursing has Noted bowel sounds. The patient describes passing flatus. Subcostal incision clean; serous drainage on dressings due to open wound. Urine output: 600 mL for calendar day 04/25/17. Laboratories: Leukocytosis continues to increase, 28.6 - however, it is noted that the patient is hemodynamically stable and afebrile. Differential now showing increased myelocytes 2.0%; metamyelocytes 4.0%; neutrophils stable at 24.6%. Hemoglobin 10.1 with hematocrit 31.3; status post transient incision 2 units packed red cells Platelet count 347,000. Electrolytes, BUN, creatinine stable; sodium unchanged at 135. Phosphorus 3.0, magnesium 1.8 Pre-albumin very low at 6.0 despite TPN ImpressionPlan: Postoperative day 3, status post exploratory celiotomy for perforated small bowel. Postoperative anemia - improved with transfusion Postoperative leukocytosis - increased but patient afeb, hemodynamically stable. Continue IV ATB and continue to monitor Protein / Calorie depletion - prolonged NPO state - continue TPN Objective Vital Signs - Last 8 Hours Temp Pulse Resp BP Pulse Ox 04/26/17 06:53 98.2 F 60 18 110/72 98 04/26/17 04:11 98.6 F 88 16 122/80 94 Intake and Output 04/25/17 04/26/17 04/26/17 23:59 07:59 15:59 Intake Total 882 / 882 650 / 650 Output Total 200 / 200 275 / 275 Balance 682 / 682 375 / 375 Intake: IV Fluids 582 / 582 650 / 650 Cipro Premix 400 MG/200 200 / 200 ML 400 mg In 200 ml @ 200 mls/hr IVPB Q12H [facility] Rx# :[id number] Intralipid 20% 250 ML @ 250 / 250 21 mls/hr IVPB DAILY@1700 [facility] Rx#:[id number] Flagyl Premix 500 MG/100 100 / 100 200 / 200 ML 500 mg In 100 ml @ 100 mls/hr IVPB Q6H [facility] Rx#: [id number] Oral 0 / 0 0 / 0 Blood Product 300 / 300 Rbcs Leuko Poor As-3 300 / 300 Unit [id number] Output: Urine 0 / 0 Urethral ([place]) 0 / 0 Catheter 200 / 200 275 / 275 Other: Meal NPO NPO NPO Weight 88 kg Blood Glucose* 168 176 153 Patient Weight 04/26/17 23:59 Weight 88 kg - Labs 04/26/17 04:40 04/26/17 04:40 Diabetes panel 04/26/17 Range/Units 04:40 Sodium 135 L (136-145) mEq/L Potassium 4.3 (3.5-4.5) mEq/L Chloride 102 (98-109) mEq/L Carbon Dioxide 27 (19-29) mEq/L BUN 16 (7-20) mg/dL Creatinine 0.63 (0.57-1.11) mg/dL Glucose 130 H (70-99) mg/dL Calcium 8.0 L (8.6-10.8) mg/dL Calcium panel 04/26/17 Range/Units 04:40 Calcium 8.0 L (8.6-10.8) mg/dL Phosphorus 3.0 (2.3-4.7) mg/dL Pituitary panel 04/26/17 Range/Units 04:40 Sodium 135 L (136-145) mEq/L Potassium 4.3 (3.5-4.5) mEq/L Chloride 102 (98-109) mEq/L Carbon Dioxide 27 (19-29) mEq/L BUN 16 (7-20) mg/dL Creatinine 0.63 (0.57-1.11) mg/dL Glucose 130 H (70-99) mg/dL Calcium 8.0 L (8.6-10.8) mg/dL Adrenal panel 04/26/17 Range/Units 04:40 Sodium 135 L (136-145) mEq/L Potassium 4.3 (3.5-4.5) mEq/L Chloride 102 (98-109) mEq/L Carbon Dioxide 27 (19-29) mEq/L BUN 16 (7-20) mg/dL Creatinine 0.63 (0.57-1.11) mg/dL Glucose 130 H (70-99) mg/dL Calcium 8.0 L (8.6-10.8) mg/dL - VTE Documentation of Mechanical Device: Venous foot pump, device Consult Discharge Plan - Plan Referrals: Jm Gomez MD [Emergency Midlevel Provider] - Bertha Aleman DO [Primary Care Provider] -
[2017-04-26] MEDS: Ondansetron 4 MG/2 ML VIAL IVP PRN (15:32)
[2017-04-26] MEDS ORDERED: Clinimix E 5%-15% SOLUTION 2,000 ML with MVI, adult with vitamin K 10 ML IVC SCH (17:00)
[2017-04-27] MEDS: MetroNIDAZOLE 500 MG/100 ML 500 MG/100 ML BAG IVPB SCH ×5 (00:14→23:32)
[2017-04-27] MEDS: Insulin LISPRO 300 UNITS/3 ML VIAL SQ SCH ×6 (00:17→21:12)
[2017-04-27] MEDS: *HR* Metoprolol 5 MG/5 ML VIAL IVP SCH ×4 (04:15→21:00)
[2017-04-27 05:16] LABS: Basophils % 0.2 %; Hematocrit 32.7 % (35.3-44.9); Hemoglobin 10.4 g/dL (11.5-15.4); Immature Granulocytes % 8.7 % (0-4); Mean Corpuscular HGB Conc 31.8 g/dL (31.6-35.5); Mean Corpuscular Hemoglobin 28.5 pg (28.0-33.3); Mean Corpuscular Volume 89.6 fL (83.0-100.0); Nucleated Red Blood Cells 0.1 /100 WBC (0); Red Blood Count 3.65 M/mcL (3.82-4.97); Red Cell Distribution Width 16.7 % (11.5-14.5)
[2017-04-27 05:17] LABS: Basophils # 0.1 K/mcL (0.0-0.2); Eosinophils # 0.3 K/mcL (0.0-0.6); Lymphocytes % 4.1 %; Mean Platelet Volume 9.6 fL (9.4-12.4); Monocytes # 1.2 K/mcL (0.0-1.3); Monocytes % 4.8 %; Neutrophils # 20.4 K/mcL (1.6-8.9); Platelet Count 326 K/mcL (140-400); Segmented Neutrophils % 81.2 %
[2017-04-27 05:34] LABS: Alanine Aminotransferase 24 Units/L (0-55); Albumin 1.6 g/dL (3.5-5.0); Albumin/Globulin Ratio 0.4 (1.1-2.2); Alkaline Phosphatase 137 Units/L (38-126); Aspartate Amino Transferase 21 Units/L (5-34); BUN/Creatinine Ratio 25 (6-26); Bilirubin,Total 0.3 mg/dL (0.2-1.2); Blood Urea Nitrogen 16 mg/dL (7-20); Carbon Dioxide 27 mEq/L (19-29); Chloride 100 mEq/L (98-109); Globulin 3.6 g/dL (2.4-3.5); Glucose 171 mg/dL (70-99); Magnesium 1.7 mg/dL (1.6-2.6); Osmolality,Calculated 281 (280-300); Phosphorous 2.6 mg/dL (2.3-4.7); Potassium 4.1 mEq/L (3.5-4.5); Sodium 133 mEq/L (136-145); Total Protein 5.2 g/dL (6.0-8.3); Triglycerides 143 mg/dL (< 150); eGFR For African Americans > 60 (> 60); eGFR For Non-African Americans > 60 (> 60)
[2017-04-27 05:52] LABS: Platelet Estimate Normal (Normal); Reactive Lymphocytes Present (Not Present); Toxic Granulation Present (Not Present); Toxic Vacuolation Present (Not Present)
[2017-04-27] MEDS: Levothyroxine Sodium 100 MCG VIAL IV SCH (06:30)
[2017-04-27] MEDS: Pantoprazole 40 MG VIAL IVP SCH (10:52)
[2017-04-27] MEDS: Fluconazole 100 MG/50 ML 100 MG/50 ML BAG IVPB SCH (10:52)
[2017-04-27] MEDS: Nystatin SUSP 5 ML UD.LIQ PO SCH ×4 (10:54→21:00)
[2017-04-27] MEDS ORDERED: Clinimix E 5%-15% SOLUTION 2,000 ML with MVI, adult with vitamin K 10 ML IVC SCH (17:00)
[2017-04-27] MEDS: 0.9 % Sodium Chloride 1,000 ML IVC SCH (17:22)
--- NOTE | 2017-04-27 19:32 | General Surgery Progress Note ---
Date of Encounter: 04/27/17 Time of Encounter: 19:00 Subjective Patient reports: no new complaints Narrative: Postoperative day #4 - patient much more awake, alert, and animated. The patient is afebrile, 98.1; pulse 88, respirations 18, blood pressure 127/ 76. Still requiring 2 L/min nasal cannula to maintain O2 saturations 95-98%. Lungs: Clear, no obvious pain on deep inspiration Abdomen: Subcostal incision clean and dry; jacqueline-incisional tenderness persist as expected but the rest of the abdomen is soft, nontender. Active bowel sounds. Urine output the last 24 hours approximately 1825 mL Laboratories: White count has diminished to 25.1; hemoglobin 10.4 and hematocrit 32.7, platelet count 326,000. Immature granulocytes 8.7%; neutrophil percentage has improved to 20.4. Metamyelocytes and myelocytes no longer detected Electrolytes notable for stable hyponatremia without obvious symptoms at 133 ; potassium 4.1, BUN 16, creatinine 0.63. Accu-Cheks 179-205 Alkaline phosphatase has improved to 137; total protein has increased to 5.2 , albumin remains stable at 1.6. Impression: Postoperative day #4, status post exploratory celiotomy with standard lysis of adhesions and small bowel resection with stapled enteroenterostomy Status appears to be improving. Subcostal incision left open but appears clean and dry. Plan: Upper GI in a.m. to verify the stapled enteroenterostomy is intact and healing. Objective Vital Signs - Last 8 Hours Temp Pulse Resp BP Pulse Ox 04/27/17 14:50 98.1 F 88 18 127/76 98 Intake and Output 04/27/17 04/27/17 04/27/17 07:59 15:59 23:59 Intake Total 893 / 893 350 / 350 2267 / 2267 Output Total 350 / 350 300 / 300 Balance 543 / 543 50 / 50 2267 / 2267 Intake: IV Fluids 893 / 893 350 / 350 2267 / 2267 0.9 % Sodium Chloride 1, 243 / 243 257 / 257 000 ML @ 25 mls/hr IVC . Q24H [facility] Rx#:[id number] Clinimix E 5%-15% 2009 SOLUTION 2,000 ML @ 83.3 mls/hr IVC .Q24H [facility] with M.v.i. Adult 10 ml Rx#: [id number] Cipro Premix 400 MG/200 200 / 200 200 / 200 ML 400 mg In 200 ml @ 200 mls/hr IVPB Q12H [facility] Rx# :[id number] Intralipid 20% 250 ML @ 250 / 250 21 mls/hr IVPB DAILY@1700 [facility] Rx#:[id number] Diflucan 100 MG/50 ML 100 50 / 50 mg In 50 ml @ 50 mls/hr IVPB DAILY [facility] Rx#: [id number] Flagyl Premix 500 MG/100 200 / 200 100 / 100 ML 500 mg In 100 ml @ 100 mls/hr IVPB Q6H [facility] Rx#: [id number] Oral 0 / 0 0 / 0 0 / 0 Output: Urine 0 / 0 Catheter 350 / 350 300 / 300 Other: Meal NPO NPO Weight 89.1 kg Blood Glucose* 183 179 Patient Weight 04/27/17 23:59 Weight 89.1 kg - Labs 04/27/17 05:06 04/27/17 05:06 Diabetes panel 04/27/17 Range/Units 05:06 Sodium 133 L (136-145) mEq/L Potassium 4.1 (3.5-4.5) mEq/L Chloride 100 (98-109) mEq/L Carbon Dioxide 27 (19-29) mEq/L BUN 16 (7-20) mg/dL Creatinine 0.63 (0.57-1.11) mg/dL Glucose 171 H (70-99) mg/dL Calcium 8.0 L (8.6-10.8) mg/dL AST 21 (5-34) Units/L ALT 24 (0-55) Units/L Alkaline Phosphatase 137 H (38-126) Units/L Albumin 1.6 L (3.5-5.0) g/dL Triglycerides 143 (< 150) mg/dL Calcium panel 04/27/17 Range/Units 05:06 Calcium 8.0 L (8.6-10.8) mg/dL Phosphorus 2.6 (2.3-4.7) mg/dL Albumin 1.6 L (3.5-5.0) g/dL Pituitary panel 04/27/17 Range/Units 05:06 Sodium 133 L (136-145) mEq/L Potassium 4.1 (3.5-4.5) mEq/L Chloride 100 (98-109) mEq/L Carbon Dioxide 27 (19-29) mEq/L BUN 16 (7-20) mg/dL Creatinine 0.63 (0.57-1.11) mg/dL Glucose 171 H (70-99) mg/dL Calcium 8.0 L (8.6-10.8) mg/dL Adrenal panel 04/27/17 Range/Units 05:06 Sodium 133 L (136-145) mEq/L Potassium 4.1 (3.5-4.5) mEq/L Chloride 100 (98-109) mEq/L Carbon Dioxide 27 (19-29) mEq/L BUN 16 (7-20) mg/dL Creatinine 0.63 (0.57-1.11) mg/dL Glucose 171 H (70-99) mg/dL Calcium 8.0 L (8.6-10.8) mg/dL Total Bilirubin 0.3 (0.2-1.2) mg/dL AST 21 (5-34) Units/L ALT 24 (0-55) Units/L Alkaline Phosphatase 137 H (38-126) Units/L Albumin 1.6 L (3.5-5.0) g/dL - VTE Documentation of Mechanical Device: Venous foot pump, device Consult Discharge Plan - Plan Referrals: Jm Gomez MD [Emergency Midlevel Provider] - Bertha Aleman DO [Primary Care Provider] -
[2017-04-27] MEDS: *HR* Heparin 5,000 UNIT/ML VIAL SQ SCH (21:01)
[2017-04-28] MEDS: Insulin LISPRO 300 UNITS/3 ML VIAL SQ SCH ×7 (00:28→23:54)
[2017-04-28] MEDS: *HR* HYDROmorphone 20 MG/20 ML PCA IVC PRN (03:40)
[2017-04-28 04:41] LABS: Hematocrit 29.5 % (35.3-44.9); Hemoglobin 9.4 g/dL (11.5-15.4); Immature Platelets 5.7 % (1.1-6.1); Mean Corpuscular HGB Conc 31.9 g/dL (31.6-35.5); Mean Corpuscular Hemoglobin 28.8 pg (28.0-33.3); Mean Corpuscular Volume 90.5 fL (83.0-100.0); Mean Platelet Volume 9.9 fL (9.4-12.4); Nucleated Red Blood Cells 0.1 /100 WBC (0); Platelet Count 383 K/mcL (140-400); Red Blood Count 3.26 M/mcL (3.82-4.97); Red Cell Distribution Width 16.3 % (11.5-14.5)
[2017-04-28 04:51] LABS: BUN/Creatinine Ratio 24 (6-26); Blood Urea Nitrogen 14 mg/dL (7-20); Carbon Dioxide 29 mEq/L (19-29); Chloride 101 mEq/L (98-109); Glucose 173 mg/dL (70-99); Magnesium 1.6 mg/dL (1.6-2.6); Osmolality,Calculated 283 (280-300); Potassium 4.4 mEq/L (3.5-4.5); Sodium 134 mEq/L (136-145); eGFR For African Americans > 60 (> 60); eGFR For Non-African Americans > 60 (> 60)
[2017-04-28 05:06] LABS: Anisocytosis 1+ (Not Present); Hypochromasia Present (Not Present); Monocytes # 1.5 K/mcL (0.0-1.3); Neutrophils # 20.3 K/mcL (1.6-8.9); Platelet Estimate Normal (Normal)
[2017-04-28 05:07] LABS: Polychromasia 1+ (Not Present)
[2017-04-28] MEDS: MetroNIDAZOLE 500 MG/100 ML 500 MG/100 ML BAG IVPB SCH ×4 (05:36→23:01)
[2017-04-28] MEDS: Levothyroxine Sodium 100 MCG VIAL IV SCH (05:37)
[2017-04-28] MEDS: *HR* Heparin 5,000 UNIT/ML VIAL SQ SCH ×2 (05:38→20:21)
[2017-04-28] MEDS: *HR* Metoprolol 5 MG/5 ML VIAL IVP SCH ×3 (06:12→17:20)
[2017-04-28] MEDS: Ondansetron 4 MG/2 ML VIAL IVP PRN ×2 (08:55→12:57)
[2017-04-28] MEDS: Nystatin SUSP 5 ML UD.LIQ PO SCH ×4 (09:01→21:53)
[2017-04-28] MEDS: 0.9 % Sodium Chloride 1,000 ML IVC SCH (09:01)
[2017-04-28] MEDS: Fluconazole 100 MG/50 ML 100 MG/50 ML BAG IVPB SCH (09:02)
[2017-04-28] MEDS: Pantoprazole 40 MG VIAL IVP SCH (09:02)
[2017-04-28] MEDS ORDERED: Clinimix E 5%-15% SOLUTION 2,000 ML with MVI, adult with vitamin K 10 ML IVC SCH (17:00)
[2017-04-28] MEDS ORDERED: 0.9 % Sodium Chloride 500 ML ONE (17:31)
--- NOTE | 2017-04-28 18:27 | General Surgery Progress Note ---
Date of Encounter: 04/28/17 Time of Encounter: 18:00 Subjective Patient reports: no new complaints Narrative: General Surgery - POD #5 Small bowel follow-through with Gastrografin and CT demonstrated an intact staple entero-enterostomy. No obvious intra-abdominal free air or extraluminal contrast suggesting a leak Patient remains afebrile, currently 98.0; pulse 96 (range 79-96); respirations 18, blood pressure 126/81. Lungs: Clear to auscultation; patient still requiring nasal cannula 2 L/m to maintain O2 saturations 93-96% Abdomen: Subcostal incision clean and dry; remains open but approaching readiness for delayed primary closure Active bowel sounds. Tenderness around the incision, the rest of the abdomen is soft without obvious tenderness or rebound. Small soft brown bowel movement recorded by nursing however patient complaining of diarrhea. Urine output: So far today 2200 mL Laboratories: White count continues to diminish slowly, 28.4; hemoglobin 9.4, hematocrit 29.5; platelet count 383,000. Increased metamyelocytes at 6%; increased myelocytes of 2% but neutrophils slightly diminished to 20.3 Electrolytes, BUN, creatinine stable - sodium has increased slightly to 134 but still low. The hyponatremia and not associated with any obvious symptoms Accu-Cheks have increased to a maximum of 279; will add levemir QHS Impression: POD #5 s/p open celiotomy, ALIZE with small bowel resection and stapled entero enterostomy Staple line/anastomosis appears intact. Will allow clear liquids tonight. slowly improving/recovering Objective Vital Signs - Last 8 Hours Temp Pulse Resp BP Pulse Ox 04/28/17 11:00 98.0 F 96 18 126/81 93 Intake and Output 04/28/17 04/28/17 04/28/17 07:59 15:59 23:59 Intake Total 650 / 650 300 / 300 0 / 0 Output Total 800 / 800 1550 / 1550 Balance -150 / -150 -1250 / -1250 0 / 0 Intake: IV Fluids 650 / 650 300 / 300 Cipro Premix 400 MG/200 200 / 200 200 / 200 ML 400 mg In 200 ml @ 200 mls/hr IVPB Q12H [facility] Rx# :[id number] Intralipid 20% 250 ML @ 250 / 250 21 mls/hr IVPB DAILY@1700 [facility] Rx#:[id number] Flagyl Premix 500 MG/100 200 / 200 100 / 100 ML 500 mg In 100 ml @ 100 mls/hr IVPB Q6H [facility] Rx#: [id number] Oral 0 / 0 0 / 0 0 / 0 Output: Urine 150 / 150 Catheter 800 / 800 1400 / 1400 Other: Meal NPO NPO Stool Size Small Small Stool Consistency liquid soft soft Stool Color Brown Brown # Bowel Movements 1 1 Weight 91.2 kg Blood Glucose* 179 272 229 Patient Weight 04/28/17 23:59 Weight 91.2 kg - Labs 04/28/17 04:30 04/28/17 04:30 Diabetes panel 04/28/17 Range/Units 04:30 Sodium 134 L (136-145) mEq/L Potassium 4.4 (3.5-4.5) mEq/L Chloride 101 (98-109) mEq/L Carbon Dioxide 29 (19-29) mEq/L BUN 14 (7-20) mg/dL Creatinine 0.59 (0.57-1.11) mg/dL Glucose 173 H (70-99) mg/dL Calcium 8.0 L (8.6-10.8) mg/dL Calcium panel 04/28/17 Range/Units 04:30 Calcium 8.0 L (8.6-10.8) mg/dL Phosphorus 3.0 (2.3-4.7) mg/dL Pituitary panel 04/28/17 Range/Units 04:30 Sodium 134 L (136-145) mEq/L Potassium 4.4 (3.5-4.5) mEq/L Chloride 101 (98-109) mEq/L Carbon Dioxide 29 (19-29) mEq/L BUN 14 (7-20) mg/dL Creatinine 0.59 (0.57-1.11) mg/dL Glucose 173 H (70-99) mg/dL Calcium 8.0 L (8.6-10.8) mg/dL Adrenal panel 04/28/17 Range/Units 04:30 Sodium 134 L (136-145) mEq/L Potassium 4.4 (3.5-4.5) mEq/L Chloride 101 (98-109) mEq/L Carbon Dioxide 29 (19-29) mEq/L BUN 14 (7-20) mg/dL Creatinine 0.59 (0.57-1.11) mg/dL Glucose 173 H (70-99) mg/dL Calcium 8.0 L (8.6-10.8) mg/dL - VTE Documentation of Mechanical Device: Venous foot pump, device Consult Discharge Plan - Plan Referrals: Jm Gomez MD [Emergency Midlevel Provider] - Bertha Aleman DO [Primary Care Provider] -
[2017-04-28] MEDS ORDERED: 0.9 % Sodium Chloride 500 ML IVC SCH (19:00)
[2017-04-28] MEDS: Insulin DETEMIR 100 UNIT/ML X5UNITS SQ SCH (20:22)
[2017-04-29] MEDS: Insulin LISPRO 300 UNITS/3 ML VIAL SQ SCH ×6 (03:43→20:52)
[2017-04-29 04:08] LABS: Hematocrit 29.2 % (35.3-44.9); Hemoglobin 9.2 g/dL (11.5-15.4); Mean Corpuscular HGB Conc 31.5 g/dL (31.6-35.5); Mean Corpuscular Hemoglobin 28.7 pg (28.0-33.3); Mean Platelet Volume 10.2 fL (9.4-12.4); Nucleated Red Blood Cells 0.1 /100 WBC (0); Platelet Count 374 K/mcL (140-400); Red Blood Count 3.21 M/mcL (3.82-4.97); Red Cell Distribution Width 16.3 % (11.5-14.5)
[2017-04-29 04:16] LABS: BUN/Creatinine Ratio 23 (6-26); Blood Urea Nitrogen 13 mg/dL (7-20); Calcium 7.9 mg/dL (8.6-10.8); Carbon Dioxide 26 mEq/L (19-29); Chloride 104 mEq/L (98-109); Glucose 173 mg/dL (70-99); Magnesium 1.6 mg/dL (1.6-2.6); Osmolality,Calculated 286 (280-300); Phosphorous 3.1 mg/dL (2.3-4.7); Potassium 3.9 mEq/L (3.5-4.5); Sodium 136 mEq/L (136-145); eGFR For African Americans > 60 (> 60); eGFR For Non-African Americans > 60 (> 60)
[2017-04-29 04:32] LABS: Lymphocytes # 2.1 K/mcL (0.6-4.6); Monocytes # 2.9 K/mcL (0.0-1.3); Neutrophils # 15.7 K/mcL (1.6-8.9)
[2017-04-29 04:33] LABS: Platelet Estimate Normal (Normal)
[2017-04-29] MEDS: MetroNIDAZOLE 500 MG/100 ML 500 MG/100 ML BAG IVPB SCH ×4 (05:18→21:59)
[2017-04-29] MEDS: *HR* Heparin 5,000 UNIT/ML VIAL SQ SCH ×2 (05:19→16:55)
[2017-04-29] MEDS ORDERED: Acetaminophen 325 MG TABLET PO PRN (07:42)
--- NOTE | 2017-04-29 07:54 | General Surgery Progress Note ---
Date of Encounter: 04/29/17 Time of Encounter: 07:45 Subjective Patient reports: no new complaints Narrative: General Surgery - POD#6 Patient continues to improve slowly; remains afebrile, currently 97.8; pulse 95 (range 87 103) respiratory rate 18, blood pressure 123/73. Lungs: Clear to auscultation, no obvious abdominal pain with deep inspiration. Patient requiring 2 L per nasal cannula to maintain O2 saturations 93-99% Abdomen: Obese, soft, nontender with active bowel sounds. Bowels moving, and patient passing flatus. Some diarrhea noted but likely due to the oral contrast administered yesterday Subcostal incision open, fascia intact. Dressing is clean and dry. Tolerating clears but appetite is diminished, likely due to TPN. Urine output 2200 mL ; 600 mL so far today Laboratories: white count continues to trend downward, 20.7; platelet count 374, 000. band neutrophils 16% but metamyelocytes and myelocytes absent Electrolytes, BUN, creatinine remained within normal limits.; Phosphorus 3.1 , magnesium 1.6 accuchecks - 182 Impression/Plan continues to improve patient requires encouragement to be active OOB and ambulatory begin to taper TPN, discontinue the intralipids. Full liquid diet. change meds to oral. 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 Objective Vital Signs - Last 8 Hours Temp Pulse Resp BP Pulse Ox 04/29/17 06:55 97.8 F 95 18 123/73 93 04/29/17 03:42 98.6 F 103 18 135/73 95 Intake and Output 04/28/17 04/28/17 04/29/17 15:59 23:59 07:59 Intake Total 300 / 300 300 / 300 350 / 350 Output Total 1550 / 1550 0 / 0 800 / 800 Balance -1250 / -1250 300 / 300 -450 / -450 Intake: IV Fluids 300 / 300 300 / 300 350 / 350 Cipro Premix 400 MG/200 200 / 200 200 / 200 ML 400 mg In 200 ml @ 200 mls/hr IVPB Q12H [facility] Rx# :[id number] Intralipid 20% 250 ML @ 250 / 250 21 mls/hr IVPB DAILY@1700 [facility] Rx#:[id number] Flagyl Premix 500 MG/100 100 / 100 100 / 100 100 / 100 ML 500 mg In 100 ml @ 100 mls/hr IVPB Q6H [facility] Rx#: [id number] Oral 0 / 0 0 / 0 0 / 0 Output: Urine 150 / 150 0 / 0 0 / 0 Urethral (Gibson) 0 / 0 0 / 0 Urine/Stool Mix 200 / 200 Catheter 1400 / 1400 600 / 600 Other: Meal NPO NPO Stool Size Small Small Stool Consistency soft liquid Stool Color Brown Brown # Bowel Movements 1 1 Weight 91.2 kg Blood Glucose* 272 207 189 Patient Weight 04/29/17 23:59 Weight 91.2 kg - Labs 04/29/17 03:47 04/29/17 03:47 Diabetes panel 04/29/17 Range/Units 03:47 Sodium 136 (136-145) mEq/L Potassium 3.9 (3.5-4.5) mEq/L Chloride 104 (98-109) mEq/L Carbon Dioxide 26 (19-29) mEq/L BUN 13 (7-20) mg/dL Creatinine 0.57 (0.57-1.11) mg/dL Glucose 173 H (70-99) mg/dL Calcium 7.9 L (8.6-10.8) mg/dL Calcium panel 04/29/17 Range/Units 03:47 Calcium 7.9 L (8.6-10.8) mg/dL Phosphorus 3.1 (2.3-4.7) mg/dL Pituitary panel 04/29/17 Range/Units 03:47 Sodium 136 (136-145) mEq/L Potassium 3.9 (3.5-4.5) mEq/L Chloride 104 (98-109) mEq/L Carbon Dioxide 26 (19-29) mEq/L BUN 13 (7-20) mg/dL Creatinine 0.57 (0.57-1.11) mg/dL Glucose 173 H (70-99) mg/dL Calcium 7.9 L (8.6-10.8) mg/dL Adrenal panel 04/29/17 Range/Units 03:47 Sodium 136 (136-145) mEq/L Potassium 3.9 (3.5-4.5) mEq/L Chloride 104 (98-109) mEq/L Carbon Dioxide 26 (19-29) mEq/L BUN 13 (7-20) mg/dL Creatinine 0.57 (0.57-1.11) mg/dL Glucose 173 H (70-99) mg/dL Calcium 7.9 L (8.6-10.8) mg/dL - VTE Documentation of Mechanical Device: Venous foot pump, device Consult Discharge Plan - Plan Referrals: Jm Gomez MD [Emergency Midlevel Provider] - Bertha Aleman DO [Primary Care Provider] -
[2017-04-29] MEDS: Metoprolol XL (24 HR) Succ 25 MG TAB.ER.24H PO SCH (08:37)
[2017-04-29] MEDS: Nystatin SUSP 5 ML UD.LIQ PO SCH ×4 (08:37→20:53)
[2017-04-29] MEDS ORDERED: Fluconazole 100 MG TABLET PO SCH (09:00)
[2017-04-29] MEDS: *HR* OxyCODONE/APAP 10/325 TABLET PO PRN ×2 (09:15→15:17)
[2017-04-29] MEDS: Ondansetron 4 MG/2 ML VIAL IVP PRN ×2 (14:49→20:51)
[2017-04-29] MEDS ORDERED: Clinimix E 5%-15% SOLUTION 2,000 ML with MVI, adult with vitamin K 10 ML IVC SCH (17:00)
[2017-04-29] MEDS: *HR* HYDROmorphone (PF) 1 MG/ML SYRINGE IVP PRN (20:51)
[2017-04-29] MEDS: Insulin DETEMIR 100 UNIT/ML X5UNITS SQ SCH (20:52)
[2017-04-30] MEDS: Insulin LISPRO 300 UNITS/3 ML VIAL SQ SCH ×6 (01:54→20:28)
[2017-04-30] MEDS: *HR* OxyCODONE/APAP 10/325 TABLET PO PRN ×4 (02:40→22:18)
[2017-04-30] MEDS: MetroNIDAZOLE 500 MG/100 ML 500 MG/100 ML BAG IVPB SCH ×4 (04:22→22:21)
[2017-04-30 04:43] LABS: Hematocrit 27.6 % (35.3-44.9); Hemoglobin 8.9 g/dL (11.5-15.4); Mean Corpuscular HGB Conc 32.2 g/dL (31.6-35.5); Mean Corpuscular Hemoglobin 28.9 pg (28.0-33.3); Mean Corpuscular Volume 89.6 fL (83.0-100.0); Mean Platelet Volume 10.1 fL (9.4-12.4); Platelet Count 431 K/mcL (140-400); Red Blood Count 3.08 M/mcL (3.82-4.97); Red Cell Distribution Width 16.6 % (11.5-14.5)
[2017-04-30 04:52] LABS: BUN/Creatinine Ratio 25 (6-26); Blood Urea Nitrogen 14 mg/dL (7-20); Calcium 7.9 mg/dL (8.6-10.8); Carbon Dioxide 27 mEq/L (19-29); Chloride 102 mEq/L (98-109); Glucose 181 mg/dL (70-99); Magnesium 1.8 mg/dL (1.6-2.6); Osmolality,Calculated 285 (280-300); Phosphorous 3.6 mg/dL (2.3-4.7); Potassium 4.4 mEq/L (3.5-4.5); Sodium 135 mEq/L (136-145); eGFR For African Americans > 60 (> 60); eGFR For Non-African Americans > 60 (> 60)
[2017-04-30] MEDS: *HR* Heparin 5,000 UNIT/ML VIAL SQ SCH ×2 (05:11→17:18)
[2017-04-30 06:26] LABS: Monocytes # 1.6 K/mcL (0.0-1.3); Neutrophils # 12.5 K/mcL (1.6-8.9)
[2017-04-30 06:27] LABS: Polychromasia 1+ (Not Present); Toxic Granulation Present (Not Present)
[2017-04-30 06:28] LABS: Large Platelets Present (Not Present)
[2017-04-30] MEDS: Metoprolol XL (24 HR) Succ 25 MG TAB.ER.24H PO SCH (07:33)
[2017-04-30] MEDS: Nystatin SUSP 5 ML UD.LIQ PO SCH ×4 (07:33→20:29)
[2017-04-30] MEDS ORDERED: Furosemide 40 MG/4 ML VIAL IVP ONE (09:55)
--- NOTE | 2017-04-30 10:05 | General Surgery Progress Note ---
Date of Encounter: 04/30/17 Time of Encounter: 09:57 Subjective Patient reports: no new complaints Narrative: POD # 7 Patient voicing no new complaints. Afeb, 98.5; RR 14; HR 86; BP 124/78. SPO2 95 -96% on room air lungs: Clear Cardiac: Regular rate, no appreciable murmurs Abdomen: Soft with persistent tenderness around the incision. Incision is clean and dry in the usual two thirds, however, persistent serous drainage is evident the lateral pole of the incision. Dressing shows maximum drainage laterally. Delayed primary closure is planned but I will be unable to do so at bedside. The patient will be taken to surgery in the a.m. to undergo delayed primary closure under anesthesia Extremities 3-4+ pitting edema Laboratories: White count continues to improve, 16.4; hemoglobin and hematocrit "drifting" 8.9 and 27.6 - likely related due to continued towards/TPN and persistent hypoproteinemia Platelet count 431,000; differential also improving band neutrophils are diminished to 12% metamyelocytes no longer evident, myelocytes 2% Impression: Postoperative day 7, status post open exploratory celiotomy, lysis of adhesions, small bowel resection with stapled enteroenterostomy. Continues to improve slowly. Plan: Delayed primary closure under anesthesia in the a.m. Lasix diuresis today Allow regular diet until midnight tonight, then nothing by mouth except for medications in preparation for surgery. Objective Vital Signs - Last 8 Hours Temp Pulse Resp BP Pulse Ox 04/30/17 06:49 98.5 F 86 14 124/78 96 04/30/17 03:49 98.5 F 93 14 133/83 95 Intake and Output 04/29/17 04/30/17 04/30/17 23:59 07:59 15:59 Intake Total 2432 / 2432 420 / 420 Output Total 1050 / 1050 550 / 550 Balance 1382 / 1382 -130 / -130 Intake: IV Fluids 2192 / 2192 300 / 300 Clinimix E 5%-15% 1991 / 1991 SOLUTION 2,000 ML @ 83.3 mls/hr IVC .Q24H [facility] with M.v.i. Adult 10 ml Rx#: [id number] Cipro Premix 400 MG/200 200 / 200 ML 400 mg In 200 ml @ 200 mls/hr IVPB Q12H [facility] Rx# :[id number] Flagyl Premix 500 MG/100 200 / 200 100 / 100 ML 500 mg In 100 ml @ 100 mls/hr IVPB Q6H [facility] Rx#: [id number] Oral 240 / 240 120 / 120 Output: Catheter 1050 / 1050 550 / 550 Other: Meal Full Percent of Meal Consumed 5% # Bowel Movements 0 Weight 90.718 kg Blood Glucose* 157 205 Patient Weight 04/30/17 23:59 Weight 90.718 kg - Labs 04/30/17 04:38 04/30/17 04:38 Diabetes panel 04/30/17 Range/Units 04:38 Sodium 135 L (136-145) mEq/L Potassium 4.4 (3.5-4.5) mEq/L Chloride 102 (98-109) mEq/L Carbon Dioxide 27 (19-29) mEq/L BUN 14 (7-20) mg/dL Creatinine 0.57 (0.57-1.11) mg/dL Glucose 181 H (70-99) mg/dL Calcium 7.9 L (8.6-10.8) mg/dL Calcium panel 04/30/17 Range/Units 04:38 Calcium 7.9 L (8.6-10.8) mg/dL Phosphorus 3.6 (2.3-4.7) mg/dL Pituitary panel 04/30/17 Range/Units 04:38 Sodium 135 L (136-145) mEq/L Potassium 4.4 (3.5-4.5) mEq/L Chloride 102 (98-109) mEq/L Carbon Dioxide 27 (19-29) mEq/L BUN 14 (7-20) mg/dL Creatinine 0.57 (0.57-1.11) mg/dL Glucose 181 H (70-99) mg/dL Calcium 7.9 L (8.6-10.8) mg/dL Adrenal panel 04/30/17 Range/Units 04:38 Sodium 135 L (136-145) mEq/L Potassium 4.4 (3.5-4.5) mEq/L Chloride 102 (98-109) mEq/L Carbon Dioxide 27 (19-29) mEq/L BUN 14 (7-20) mg/dL Creatinine 0.57 (0.57-1.11) mg/dL Glucose 181 H (70-99) mg/dL Calcium 7.9 L (8.6-10.8) mg/dL - VTE Documentation of Mechanical Device: Venous foot pump, device Consult Discharge Plan - Plan Referrals: Jm Gomez MD [Emergency Midlevel Provider] - Bertha Aleman DO [Primary Care Provider] -
[2017-04-30] MEDS: *HR* HYDROmorphone (PF) 1 MG/ML SYRINGE IVP PRN ×2 (13:58→20:29)
[2017-04-30] MEDS ORDERED: Clinimix E 5%-15% SOLUTION 2,000 ML with MVI, adult with vitamin K 10 ML IVC SCH (17:00)
[2017-04-30] MEDS: Insulin DETEMIR 100 UNIT/ML X5UNITS SQ SCH (20:29)
[2017-05-01] MEDS: Insulin LISPRO 300 UNITS/3 ML VIAL SQ SCH ×6 (00:28→21:38)
[2017-05-01] MEDS: *HR* OxyCODONE/APAP 10/325 TABLET PO PRN ×3 (04:19→22:37)
[2017-05-01 05:38] LABS: Basophils # 0.1 K/mcL (0.0-0.2); Basophils % 0.4 %; Eosinophils # 0.3 K/mcL (0.0-0.6); Eosinophils % 1.4 %; Hematocrit 30.6 % (35.3-44.9); Hemoglobin 9.7 g/dL (11.5-15.4); Immature Granulocytes % 4.3 % (0-4); Lymphocytes # 1.4 K/mcL (0.6-4.6); Lymphocytes % 7.8 %; Mean Corpuscular HGB Conc 31.7 g/dL (31.6-35.5); Mean Corpuscular Hemoglobin 28.8 pg (28.0-33.3); Mean Corpuscular Volume 90.8 fL (83.0-100.0); Mean Platelet Volume 10.4 fL (9.4-12.4); Monocytes # 1.8 K/mcL (0.0-1.3); Monocytes % 9.6 %; Platelet Count 531 K/mcL (140-400); Red Blood Count 3.37 M/mcL (3.82-4.97); Red Cell Distribution Width 17.1 % (11.5-14.5); Segmented Neutrophils % 76.5 %
[2017-05-01] MEDS: MetroNIDAZOLE 500 MG/100 ML 500 MG/100 ML BAG IVPB SCH ×3 (05:59→23:43)
[2017-05-01] MEDS: *HR* Heparin 5,000 UNIT/ML VIAL SQ SCH (06:00)
[2017-05-01 07:13] LABS: Alanine Aminotransferase 12 Units/L (0-55); Albumin/Globulin Ratio 0.5 (1.1-2.2); Alkaline Phosphatase 91 Units/L (38-126); Aspartate Amino Transferase 18 Units/L (5-34); BUN/Creatinine Ratio 25 (6-26); Bilirubin,Total 0.3 mg/dL (0.2-1.2); Blood Urea Nitrogen 16 mg/dL (7-20); Carbon Dioxide 29 mEq/L (19-29); Chloride 101 mEq/L (98-109); Globulin 3.5 g/dL (2.4-3.5); Glucose 161 mg/dL (70-99); Magnesium 1.7 mg/dL (1.6-2.6); Osmolality,Calculated 285 (280-300); Phosphorous 3.9 mg/dL (2.3-4.7); Potassium 4.8 mEq/L (3.5-4.5); Sodium 135 mEq/L (136-145); Total Protein 5.1 g/dL (6.0-8.3); eGFR For African Americans > 60 (> 60); eGFR For Non-African Americans > 60 (> 60)
[2017-05-01 07:14] LABS: Albumin 1.6 g/dL (3.5-5.0)
[2017-05-01] MEDS: Metoprolol XL (24 HR) Succ 25 MG TAB.ER.24H PO SCH (08:02)
[2017-05-01] MEDS: *HR* HYDROmorphone (PF) 1 MG/ML SYRINGE IVP PRN ×3 (08:08→19:30)
[2017-05-01] MEDS: Nystatin SUSP 5 ML UD.LIQ PO SCH ×3 (10:23→21:58)
[2017-05-01] MEDS ORDERED: Propofol 500 MG/50 ML INFUS..BTL ONE (16:45)
[2017-05-01] MEDS ORDERED: Clinimix E 5%-15% SOLUTION 2,000 ML with MVI, adult with vitamin K 10 ML IVC SCH ×2 (17:00→20:46)
--- NOTE | 2017-05-01 17:15 | Anesthesia Evaluation PreOp ---
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: Denies Any Significant HX Other Medical History: Thyroid, Other (obese) Anesthesia History: No Prior Anesthetic Complications Alcohol Use: none Drug use: none Medications and Allergies Citalopram Hydrobromide [Citalopram HBr] 10 mg PO DAILY 04/16/17 [History] Levothyroxine [Synthroid] 50 mcg PO DAILY 04/16/17 [History] Metoprolol XL (24 HR) Succ [Toprol XL] 25 mg PO DAILY 04/16/17 [History] Allergies Penicillins Allergy (Verified 04/16/17 13:24) Rash - Meds/Allergy Pre-op Review Medications Reviewed: Yes Allergies Reviewed: Yes Beta Blockers on Current Med List: Yes If Beta Blockers taken, Date/Time (Last Dose taken): 05-01-17 metoprolol 8:02 Anesthesia Results - Labs 05/01/17 04:34 05/01/17 06:27 Anesthesia Exam Last Vital Signs Temp 98.1 F 05/01/17 16:53 Pulse 86 05/01/17 16:53 Resp 15 05/01/17 16:53 BP 129/84 05/01/17 16:53 Pulse Ox 96 05/01/17 16:53 Weight: 90 kg NPO (# of Hours): >> 8 hrs - HEENT Pupil (Motor): Pupils equal, EOMI Mallampati: III Teeth: Poor dentition Oral Opening: Greater than 3 - [employer] LOC: Oriented [employer] Motor: Normal RUE, Normal LUE, Normal RLE, Normal LLE, Normal Face - Cardiac Rhythm: Regular Murmur: None - Pulmonary Breath Sounds: bilateral Clear Respiratory Effort: Symmetrical Anesthesia Assess/Plan ASA Score: 3 Modified Regis Scale for Level of Consciousness: Cooperative, oriented, and tranquil Anesthetic Plan: MAC Monitoring Plan: Standard Monitors Recovery Plan: PACU
[2017-05-01] MEDS ORDERED: *HR* FentaNYL (PF) 100 MCG/2 ML VIAL ONE ×2 (18:09→18:21)
[2017-05-01] MEDS ORDERED: *HR* Midazolam HCl 2 MG/2 ML VIAL ONE (18:09)
[2017-05-01] MEDS ORDERED: Lidocaine -MPF 2% 2 ML VIAL ONE (18:31)
[2017-05-01] MEDS ORDERED: Dexamethasone 4 MG/ML VIAL ONE (18:31)
[2017-05-01] MEDS ORDERED: *HR* Propofol 200 MG/20 ML VIAL IVP ONE (18:31)
[2017-05-01] MEDS ORDERED: Ondansetron 4 MG/2 ML VIAL ONE (18:52)
[2017-05-01] MEDS ORDERED: *HR* HYDROmorphone 2 MG/ML SYRINGE ONE (19:09)
[2017-05-01] MEDS ORDERED: *HR* HYDROmorphone (PF) 1 MG/ML SYRINGE ONE (19:23)
[2017-05-01] MEDS ORDERED: Ondansetron 4 MG/2 ML VIAL IVP ONE (19:24)
--- NOTE | 2017-05-01 19:25 | Operative Note ---
Date of procedure: 05/01/17 Pre-op diagnosis: open subcostal wound Post-op diagnosis: same Procedure: wound irrigation, debridement with partial delayed primary closure Complications: none apparent Anesthesia: MAC Surgeon: Jm Gomez Estimated blood loss (cc): 2 IV fluids (cc): 400 Specimen: aerobic and anaerobic cultures Condition: stable Disposition: PACU Procedure in Detail: The patient was brought to the operating room where she was placed supine upon the operating room table. The patient was appropriately identified as to person and procedure. The accuracy of this information was confirmed by the procedure team. Monitored anesthesia was administered under the supervision of Dr Nuvia Cowan. Purulent drainage was evident in the lateral portion of the wound, aerobic and anaerobic cultures of this fluid was obtained. The anterior abdominal wall and the open subcostal incision was prepped with Betadine and draped under sterile conditions. An Ioban adhesive dressing was applied. The wound was debrided of any identified necrotic tissue. The wound was then irrigated using a pulsatile irrigation system (Surgi Lav) and 1 L of sterile saline. The wound was irrigated with hydrogen peroxide. The medial two thirds of the open wound was approximated with the prior placed vertical mattress 4-0 Prolene. The lateral portion of the wound was left open and packed with one-inch iodoform gauze. Steri-Strips were placed across the newly closed wound as well as across the remaining vertical mattress 4-0 Prolene in the lateral portion of the open wound. Fluffy gauze dressing was applied to the anterior abd wall and secured with tape. The patient was taken to recovery in stable condition. Needle, sponge, and instrument counts were correct at the close of the case.
[2017-05-01] MEDS ORDERED: D10% in Water 500 ML IVC PRN (20:46)
[2017-05-01] MEDS ORDERED: *HR* HYDROmorphone (PF) 1 MG/ML SYRINGE IVP PRN (20:46)
[2017-05-01] MEDS ORDERED: *HR* Dextrose 50 % in Water (Syg) 50 ML SYRINGE IVP PRN (20:46)
[2017-05-01] MEDS ORDERED: Naloxone 0.4 MG/ML INJ IVP PRN (20:46)
[2017-05-01] MEDS ORDERED: D5% in Water 1,000 ML IVC PRN (20:46)
[2017-05-01] MEDS ORDERED: Dextrose Gel 15 GM PO PRN (20:46)
--- NOTE | 2017-05-01 21:13 | Anesthesia Evaluation Post Op ---
Date of Encounter: 05/01/17 Time of Encounter: 20:00 - Vital Signs Vital Signs: Vital Signs/O2 Sat/Glucose, Most Current Temp Pulse Resp BP Pulse Ox 05/01/17 20:06 98.5 F 96 12 119/68 97 05/01/17 19:56 98 16 117/64 98 05/01/17 19:46 98.5 F 96 16 116/60 98 05/01/17 19:36 92 12 111/59 97 05/01/17 19:26 89 14 127/60 99 05/01/17 19:16 98 F 96 20 126/72 100 - Lungs Lungs: Clear Ascult./Percussion - Airway Airway: Non-obstructed - Cardiovascular Regular Rate - Mental Status Mental Status: Alert & Oriented, Answers Appropriately - Pain Pain Scale: 4 Pain Scale used: Numeric (1 - 10) - Nausea Vomiting Nausea Vomiting: Not Present - Hydration Hydration: NPO, Ice chips, Gibson catheter - Discharge PostOp Status: Transfer Patient to floor Anes Supervising Prov Stmt: Pt seen/evaluated, VSS And pt has met criteria for discharge to floor. - MD Bernard
[2017-05-01] MEDS: Insulin DETEMIR 100 UNIT/ML X5UNITS SQ SCH (21:57)
[2017-05-01] MEDS ORDERED: MetroNIDAZOLE 500 MG/100 ML 500 MG/100 ML BAG IVPB SCH (23:00)
[2017-05-02] MEDS: Insulin LISPRO 300 UNITS/3 ML VIAL SQ SCH ×6 (01:25→21:13)
[2017-05-02] MEDS: *HR* OxyCODONE/APAP 10/325 TABLET PO PRN ×3 (04:43→17:32)
[2017-05-02] MEDS: MetroNIDAZOLE 500 MG/100 ML 500 MG/100 ML BAG IVPB SCH ×2 (05:32→11:19)
[2017-05-02] MEDS: *HR* Heparin 5,000 UNIT/ML VIAL SQ SCH ×2 (05:36→17:40)
[2017-05-02 07:06] LABS: Basophils % 0.2 %; Eosinophils % 0.1 %; Hematocrit 29.6 % (35.3-44.9); Hemoglobin 9.3 g/dL (11.5-15.4); Immature Granulocytes % 1.8 % (0-4); Lymphocytes # 0.7 K/mcL (0.6-4.6); Lymphocytes % 3.5 %; Mean Corpuscular HGB Conc 31.4 g/dL (31.6-35.5); Mean Corpuscular Hemoglobin 28.7 pg (28.0-33.3); Mean Corpuscular Volume 91.4 fL (83.0-100.0); Mean Platelet Volume 10.2 fL (9.4-12.4); Monocytes # 0.9 K/mcL (0.0-1.3); Monocytes % 4.6 %; Neutrophils # 17.8 K/mcL (1.6-8.9); Platelet Count 534 K/mcL (140-400); Red Blood Count 3.24 M/mcL (3.82-4.97); Red Cell Distribution Width 16.9 % (11.5-14.5); Segmented Neutrophils % 89.8 %
[2017-05-02 07:20] LABS: Alanine Aminotransferase 12 Units/L (0-55); Albumin/Globulin Ratio 0.5 (1.1-2.2); Alkaline Phosphatase 105 Units/L (38-126); Aspartate Amino Transferase 17 Units/L (5-34); BUN/Creatinine Ratio 25 (6-26); Bilirubin,Total 0.3 mg/dL (0.2-1.2); Blood Urea Nitrogen 17 mg/dL (7-20); Calcium 8.2 mg/dL (8.6-10.8); Carbon Dioxide 29 mEq/L (19-29); Chloride 102 mEq/L (98-109); Globulin 3.6 g/dL (2.4-3.5); Glucose 204 mg/dL (70-99); Osmolality,Calculated 287 (280-300); Potassium 4.8 mEq/L (3.5-4.5); Sodium 135 mEq/L (136-145); Total Protein 5.3 g/dL (6.0-8.3); eGFR For African Americans > 60 (> 60); eGFR For Non-African Americans > 60 (> 60)
[2017-05-02 07:23] LABS: Albumin 1.7 g/dL (3.5-5.0)
[2017-05-02] MEDS: Nystatin SUSP 5 ML UD.LIQ PO SCH ×4 (09:47→22:09)
[2017-05-02] MEDS: Metoprolol XL (24 HR) Succ 25 MG TAB.ER.24H PO SCH (09:47)
[2017-05-02] MEDS ORDERED: Furosemide 40 MG/4 ML VIAL IVP STA (13:58)
[2017-05-02] MEDS: *HR* HYDROmorphone (PF) 1 MG/ML SYRINGE IVP PRN (14:18)
--- NOTE | 2017-05-02 14:25 | General Surgery Progress Note ---
Date of Encounter: 05/02/17 Time of Encounter: 14:02 Subjective Patient reports: no new complaints Narrative: POD #1 - s/p operative debridement with partial delayed primary closure POD #9 - s/p open explor celiotomy, lysis adhesions with small bowel resection, stapled entero enterostomy Patient awake and alert in good spirts AFeb, hemodynamically stable Lungs clear to ascultation abdominal soft, persistent incisional tenderness; left side of abdomen without obvious tenderness active bowel sounds. The subcostal incision dressing was removed - the wound appears clean. Fluffy gauze dressing applied to the lateral / open portion of the subcostal incision. Iodophor packing left intact Labs:WBC has increased to 19.9 -possibly in response to yesterday's surgery H&H 9.3 / 29.6 - essentially stable. Platelets - 534,000 Neutrophils increased 17.8% Electrolytes, BUN, Cr stable LFTs WNL; protein 5.3 alb 1.7 Operative cultures pending Impression /Plan: discontinue TPN; patient tolerating regular diet but little oral intake possibly due to TPN suppression of appetite Elevated WBC - possibly in response to surgery yesterday, however, patient has been on Cipro and Flagyl since 04/23/2017 - change to meropenem. await operative cultures - adjust ATB as appropriate discussed possible application of wound vac to open portion subcostal wound. peripheral/dependent edema - due to fluids and protein/albumin depletion - furosemide diuresis, protein supplementation Objective Vital Signs - Last 8 Hours Temp Pulse Resp BP Pulse Ox 05/02/17 12:23 97.6 F 87 15 120/78 98 05/02/17 09:50 99 05/02/17 08:30 97.5 F L 86 17 140/83 99 Intake and Output 05/01/17 05/02/17 05/02/17 23:59 07:59 15:59 Intake Total 200 / 200 489 / 489 240 / 240 Output Total 1950 / 1950 1500 / 1500 1150 / 1150 Balance -1750 / -1750 -1011 / -1011 -910 / -910 Intake: IV Fluids 200 / 200 489 / 489 Clinimix E 5%-15% 289 / 289 SOLUTION 2,000 ML @ 50 mls/hr IVC .Q24H [facility] with M.v.i. Adult 10 ml Rx#: [id number] Cipro Premix 400 MG/200 200 / 200 ML 400 mg In 200 ml @ 200 mls/hr IVPB Q12H [facility] Rx# :[id number] Flagyl Premix 500 MG/100 200 / 200 ML 500 mg In 100 ml @ 100 mls/hr IVPB Q6H [facility] Rx#: [id number] Oral 0 / 0 0 / 0 240 / 240 Output: Urine 450 / 450 750 / 750 Urethral (Gibson) 450 / 450 750 / 750 Estimated Blood Loss 0 / 0 Catheter 1500 / 1500 750 / 750 1150 / 1150 Other: Meal NPO for supper Breakfast Percent of Meal Consumed 75% Weight 89.358 kg Blood Glucose* 109 221 229 Patient Weight 05/02/17 23:59 Weight 89.358 kg - Labs 05/02/17 06:35 05/02/17 06:35 Diabetes panel 05/02/17 Range/Units 06:35 Sodium 135 L (136-145) mEq/L Potassium 4.8 H (3.5-4.5) mEq/L Chloride 102 (98-109) mEq/L Carbon Dioxide 29 (19-29) mEq/L BUN 17 (7-20) mg/dL Creatinine 0.67 (0.57-1.11) mg/dL Glucose 204 H (70-99) mg/dL Calcium 8.2 L (8.6-10.8) mg/dL AST 17 (5-34) Units/L ALT 12 (0-55) Units/L Alkaline Phosphatase 105 (38-126) Units/L Albumin 1.7 L (3.5-5.0) g/dL Calcium panel 05/02/17 Range/Units 06:35 Calcium 8.2 L (8.6-10.8) mg/dL Albumin 1.7 L (3.5-5.0) g/dL Pituitary panel 05/02/17 Range/Units 06:35 Sodium 135 L (136-145) mEq/L Potassium 4.8 H (3.5-4.5) mEq/L Chloride 102 (98-109) mEq/L Carbon Dioxide 29 (19-29) mEq/L BUN 17 (7-20) mg/dL Creatinine 0.67 (0.57-1.11) mg/dL Glucose 204 H (70-99) mg/dL Calcium 8.2 L (8.6-10.8) mg/dL Adrenal panel 05/02/17 Range/Units 06:35 Sodium 135 L (136-145) mEq/L Potassium 4.8 H (3.5-4.5) mEq/L Chloride 102 (98-109) mEq/L Carbon Dioxide 29 (19-29) mEq/L BUN 17 (7-20) mg/dL Creatinine 0.67 (0.57-1.11) mg/dL Glucose 204 H (70-99) mg/dL Calcium 8.2 L (8.6-10.8) mg/dL Total Bilirubin 0.3 (0.2-1.2) mg/dL AST 17 (5-34) Units/L ALT 12 (0-55) Units/L Alkaline Phosphatase 105 (38-126) Units/L Albumin 1.7 L (3.5-5.0) g/dL - VTE Documentation of Mechanical Device: Intermittent pneumatic compression device Consult Discharge Plan - Plan Referrals: Jm Gomez MD [Emergency Midlevel Provider] - Bertha Aleman DO [Primary Care Provider] -
[2017-05-02] MEDS: Meropenem 500 MG in 0.9 % Sodium Chloride Mini Bag 100 ML IVPB SCH ×2 (15:41→22:09)
[2017-05-02] MEDS ORDERED: Meropenem 500 MG in 0.9 % Sodium Chloride Mini Bag 100 ML IVPB SCH (16:00)
[2017-05-02] MEDS: Ondansetron 4 MG/2 ML VIAL IVP PRN (17:34)
[2017-05-02] MEDS: Insulin DETEMIR 100 UNIT/ML X5UNITS SQ SCH (21:24)
[2017-05-03] MEDS: Insulin LISPRO 300 UNITS/3 ML VIAL SQ SCH ×3 (00:01→08:42)
[2017-05-03] MEDS: *HR* OxyCODONE/APAP 10/325 TABLET PO PRN ×4 (01:08→20:48)
[2017-05-03] MEDS: *HR* Heparin 5,000 UNIT/ML VIAL SQ SCH ×2 (06:00→18:01)
[2017-05-03] MEDS: Meropenem 500 MG in 0.9 % Sodium Chloride Mini Bag 100 ML IVPB SCH ×3 (06:00→23:54)
[2017-05-03 07:01] LABS: Basophils # 0.1 K/mcL (0.0-0.2); Basophils % 0.4 %; Eosinophils # 0.2 K/mcL (0.0-0.6); Eosinophils % 0.9 %; Hematocrit 31.3 % (35.3-44.9); Hemoglobin 9.6 g/dL (11.5-15.4); Immature Granulocytes % 1.6 % (0-4); Lymphocytes # 1.7 K/mcL (0.6-4.6); Lymphocytes % 10.3 %; Mean Corpuscular HGB Conc 30.7 g/dL (31.6-35.5); Mean Corpuscular Hemoglobin 28.2 pg (28.0-33.3); Mean Corpuscular Volume 91.8 fL (83.0-100.0); Mean Platelet Volume 9.7 fL (9.4-12.4); Monocytes # 1.4 K/mcL (0.0-1.3); Monocytes % 8.4 %; Platelet Count 587 K/mcL (140-400); Red Blood Count 3.41 M/mcL (3.82-4.97); Segmented Neutrophils % 78.4 %
[2017-05-03 07:11] LABS: BUN/Creatinine Ratio 27 (6-26); Blood Urea Nitrogen 17 mg/dL (7-20); Calcium 8.2 mg/dL (8.6-10.8); Carbon Dioxide 28 mEq/L (19-29); Chloride 103 mEq/L (98-109); Glucose 78 mg/dL (70-99); Osmolality,Calculated 284 (280-300); Potassium 4.3 mEq/L (3.5-4.5); Sodium 137 mEq/L (136-145); eGFR For African Americans > 60 (> 60); eGFR For Non-African Americans > 60 (> 60)
[2017-05-03] MEDS: Nystatin SUSP 5 ML UD.LIQ PO SCH ×2 (08:45→12:08)
[2017-05-03] MEDS: Metoprolol XL (24 HR) Succ 25 MG TAB.ER.24H PO SCH (08:45)
[2017-05-03] MEDS: *HR* HYDROmorphone (PF) 1 MG/ML SYRINGE IVP PRN (13:35)
--- NOTE | 2017-05-03 16:22 | General Surgery Progress Note ---
Date of Encounter: 05/03/17 Time of Encounter: 13:00 Subjective Patient reports: feels better Narrative: General Surgery POD #2 - open subcostal wound debridement, partial delayed primary closure POD #10 - explor celiotomy, ALIZE with small bowel resection, stapled entero enterostom Patient appears to be well; afeb, 97.9; HR 77, RR 16; BP stable 116/80. SPO2 on room air 94-96% Lungs: Clear Abdomen: Soft with persistent incisional tenderness. The rest of the abdomen soft, nontender. Purulent drainage lateral aspect of the incision which is still open; however operative cultures negative for growth so far. Dressing removed; wound VAC applied (assisted by Marissa River, wound ostomy nurse) Laboratories: White count much improved 16.6 (previously 19.9) hemoglobin 9.6 with hematocrit 31.3; platelet count 587,000. Neutrophil percentage diminished to 13.0 (previously 17.8) Electrolytes, BUN, creatinine within normal limits; hyperkalemia corrected Impression: improved; wound vac applied to remaining open portion of wound Continue Ertapenem pending operative culture results. If cultures negative - will discontinue ATB Objective Vital Signs - Last 8 Hours Temp Pulse Resp BP Pulse Ox 05/03/17 14:50 97.9 F 77 16 116/80 96 05/03/17 11:16 98.1 F 83 14 109/75 94 05/03/17 08:45 95 Intake and Output 05/03/17 05/03/17 05/03/17 07:59 15:59 23:59 Intake Total 100 / 100 360 / 360 Output Total 500 / 500 450 / 450 Balance -400 / -400 -90 / -90 Intake: IV Fluids 100 / 100 Merrem 500 MG In 0.9 % 100 / 100 Sodium Chloride (Mini-Bag +) 100 ML @ 200 mls/hr IVPB Q8H [facility] Rx#: [id number] Oral 0 / 0 360 / 360 Output: Urine 0 / 0 200 / 200 Catheter 500 / 500 250 / 250 Other: Meal Lunch Percent of Meal Consumed 75% Stool Size Large Stool Consistency loose Stool Color Brown # Bowel Movements 1 Weight 91.1 kg Blood Glucose* 102 105 Patient Weight 05/03/17 23:59 Weight 91.1 kg - Labs 05/03/17 06:33 05/03/17 06:33 Diabetes panel 05/03/17 Range/Units 06:33 Sodium 137 (136-145) mEq/L Potassium 4.3 (3.5-4.5) mEq/L Chloride 103 (98-109) mEq/L Carbon Dioxide 28 (19-29) mEq/L BUN 17 (7-20) mg/dL Creatinine 0.63 (0.57-1.11) mg/dL Glucose 78 (70-99) mg/dL Calcium 8.2 L (8.6-10.8) mg/dL Calcium panel 05/03/17 Range/Units 06:33 Calcium 8.2 L (8.6-10.8) mg/dL Pituitary panel 05/03/17 Range/Units 06:33 Sodium 137 (136-145) mEq/L Potassium 4.3 (3.5-4.5) mEq/L Chloride 103 (98-109) mEq/L Carbon Dioxide 28 (19-29) mEq/L BUN 17 (7-20) mg/dL Creatinine 0.63 (0.57-1.11) mg/dL Glucose 78 (70-99) mg/dL Calcium 8.2 L (8.6-10.8) mg/dL Adrenal panel 05/03/17 Range/Units 06:33 Sodium 137 (136-145) mEq/L Potassium 4.3 (3.5-4.5) mEq/L Chloride 103 (98-109) mEq/L Carbon Dioxide 28 (19-29) mEq/L BUN 17 (7-20) mg/dL Creatinine 0.63 (0.57-1.11) mg/dL Glucose 78 (70-99) mg/dL Calcium 8.2 L (8.6-10.8) mg/dL - VTE Documentation of Mechanical Device: Intermittent pneumatic compression device Consult Discharge Plan - Plan Referrals: Jm Gomez MD [Emergency Midlevel Provider] - Bertha Aleman DO [Primary Care Provider] -
[2017-05-03] MEDS ORDERED: Furosemide 40 MG/4 ML VIAL IVP ONE (16:23)
[2017-05-04 05:40] LABS: Basophils % 0.3 %; Eosinophils # 0.1 K/mcL (0.0-0.6); Hematocrit 29.9 % (35.3-44.9); Hemoglobin 9.2 g/dL (11.5-15.4); Immature Granulocytes % 0.9 % (0-4); Lymphocytes # 1.1 K/mcL (0.6-4.6); Lymphocytes % 9.7 %; Mean Corpuscular HGB Conc 30.8 g/dL (31.6-35.5); Mean Corpuscular Hemoglobin 27.8 pg (28.0-33.3); Mean Corpuscular Volume 90.3 fL (83.0-100.0); Mean Platelet Volume 9.3 fL (9.4-12.4); Monocytes # 1.1 K/mcL (0.0-1.3); Monocytes % 9.7 %; Neutrophils # 8.9 K/mcL (1.6-8.9); Platelet Count 552 K/mcL (140-400); Red Blood Count 3.31 M/mcL (3.82-4.97); Red Cell Distribution Width 17.1 % (11.5-14.5); Segmented Neutrophils % 78.4 %
[2017-05-04 05:50] LABS: Albumin 1.9 g/dL (3.5-5.0); Albumin/Globulin Ratio 0.5 (1.1-2.2); Globulin 3.5 g/dL (2.4-3.5); Total Protein 5.4 g/dL (6.0-8.3)
[2017-05-04] MEDS: *HR* Heparin 5,000 UNIT/ML VIAL SQ SCH ×2 (05:55→17:51)
[2017-05-04] MEDS: Meropenem 500 MG in 0.9 % Sodium Chloride Mini Bag 100 ML IVPB SCH (07:02)
[2017-05-04] MEDS: Metoprolol XL (24 HR) Succ 25 MG TAB.ER.24H PO SCH (08:58)
[2017-05-04] MEDS: Acetaminophen 325 MG TABLET PO PRN ×2 (09:07→18:48)
--- NOTE | 2017-05-04 09:32 | General Surgery Progress Note ---
Date of Encounter: 05/04/17 Time of Encounter: 09:05 Subjective Patient reports: no new complaints, feels better Narrative: General Surgery: POD #3 -wound debridement partial delayed primary closure POD #11-s/p explor celiotomy, ALIZE with small bowel resection, stapled entero enterostomy patient appears well, voicing no complaints, in good spirits. Afeb, maximum temp 99.1; HR 86, RR 17; BP 114/74; SPO2 on RA 90-93 % Urine output: 3725 in the last 24 hours wound vac drainage approx 50mL operative cultures - no growth Lungs: clear to auscultation, no abdominal pain with deep inspiration Abdomen: Soft; minimal tenderness around the incision; medial portion subcostal incision with minimal drainage on the gauze dressing Wound vac intact and appears to be functioning properly. laboratories: White count 11.3; hemoglobin and hematocrit stable, 9.2/29.1. total protein 5.4; albumin 1.9; prealbumin 20 Impression: acceptable status - slowly recovering from multiple surgeries. Needs encourage to be active OOB and ambulatory leukocytosis almost resolved open subcostal wound - cultures demonstrate no pathogens to date; anaerobic cultures still pending. Will discontinue ATB hypoproteinemia and hypoalbuminemia - improving effective diuresis with diminished dependent edema of the legs -remove Gibson this AM Objective Vital Signs - Last 8 Hours Temp Pulse Resp BP Pulse Ox 05/04/17 07:34 99.1 F 86 17 114/74 90 05/04/17 04:04 98.5 F 83 17 132/83 93 Intake and Output 05/03/17 05/04/17 05/04/17 23:59 07:59 15:59 Intake Total 0 / 0 100 / 100 100 / 100 Output Total 1550 / 1550 1475 / 1475 Balance -1550 / -1550 -1375 / -1375 100 / 100 Intake: IV Fluids 100 / 100 100 / 100 Merrem 500 MG In 0.9 % 100 / 100 100 / 100 Sodium Chloride (Mini-Bag +) 100 ML @ 200 mls/hr IVPB Q8H PENDING SALE TO [facility] Rx#: [id number] Oral 0 / 0 0 / 0 Output: Urine 0 / 0 0 / 0 Catheter 1550 / 1550 1425 / 1425 Wound Drainage 50 / 50 Right Abdomen 50 / 50 Other: Meal Dinner Percent of Meal Consumed 25% # Bowel Movements 0 Weight 90.6 kg Patient Weight 05/04/17 23:59 Weight 90.6 kg - Labs 05/04/17 05:17 05/03/17 06:33 Diabetes panel 05/04/17 Range/Units 05:17 Albumin 1.9 L (3.5-5.0) g/dL Calcium panel 05/04/17 Range/Units 05:17 Albumin 1.9 L (3.5-5.0) g/dL Adrenal panel 05/04/17 Range/Units 05:17 Albumin 1.9 L (3.5-5.0) g/dL - VTE Documentation of Mechanical Device: Intermittent pneumatic compression device Consult Discharge Plan - Plan Referrals: Jm Gomez MD [Emergency Midlevel Provider] - Bertha Aleman DO [Primary Care Provider] -
[2017-05-04] MEDS ORDERED: Furosemide 40 MG/4 ML VIAL IVP ONE (18:17)
[2017-05-05] MEDS: *HR* Heparin 5,000 UNIT/ML VIAL SQ SCH (05:53)
[2017-05-05] MEDS: Metoprolol XL (24 HR) Succ 25 MG TAB.ER.24H PO SCH (09:03)
[2017-05-05] MEDS: Acetaminophen 325 MG TABLET PO PRN (09:04)
[2017-05-05] MEDS ORDERED: *HR* OxyCODONE/APAP 7.5/325 TABLET PO PRN (11:13)
--- NOTE | 2017-05-05 11:42 | General Surgery Progress Note ---
Date of Encounter: 05/05/17 Time of Encounter: 11:13 Subjective Patient reports: no new complaints, feels better Narrative: General Surgery - Progress Note / Discharge Note POD #4 - wound debridement, partial delayed primary closure open subcostal incision POD #12 s/p exploratory celiotomy, lysis of adhesions and stapled entero- enterostomy patient feeling well; voicing no complaints afebrile, currently 98.0; pulse 84, respirations 16, blood pressure 133/76. Lungs: CTA Abd: soft, nontender, incision - scant seropurulent drainage medial 2/3 of the incision. Bowels moving regularly Wound vac - lateral 1/3 of the wound - intact and functioning properly Gibson removed - patient able to void Urine output - 4000+ mL in the last 24 hours Impression : satisfactory post op recovery, ready for discharge home Brief history: 62 YOF admitted after transferring from [facility], with new onset RUQ abd pain and nausea. Findings consistent with acute calculus cholecystitis for which pateint requested transfer to [facility] for further care/surgery. Past medical history notable for known cholelithiasis since 2011, morbid obesity, hypertension, hypothyroidism and depression. History of prior complicated surgeries include TAHBSO with perforation of the rectum, 2005. Patient required Richard procedure to address the rectal injury. Reversal of the Richard procedure was completed 2006 with recurrent infections anterior abdominal requiring prolonged care to effect healing, almost 4 years. Patient underwent open cholecystectomy, 04/17/2017, which was complicated by a small bowel injury requiring return to surgery, 04/23/2017. The patient required an exploratory celiotomy with resection of the injured loop small bowel and stapled entero enterostomy. The subcostal incision was left open (fascia was closed) for planned delayed primary closure once the small bowel injury was addressed and healed. 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 The integrity of the stapled anastomosis was confirmed POD #5. Diet was initiated, the TPN was weaned. Delayed partial primary closure of the subcostal incision was completed 2016. A wound vac was applied to the remaining open portion of the wound with patient's continued recovery until discharge 05/05/2017. At the time of discharge , the patient was in good physical condition, there was no evidence infection. Cultures at the time of the delayed wound closure were negative for growth. [facility] had been contacted and arrangements for continued Wound Vac therapy completed at the time of discharge. Discharge diagnoses: acute calculus cholecystitis, cholelithiasis post op bile leak post op small bowel injury requiring resection post op anemia - acute blood loss anemia and anemia of prolonged illness hyponatremia without obvious symptoms or sequelae - resolved prior to discharge hyperkalemia - resolved prior to discharge hypoproteinemia and hypo albuminemia fungal vaginitis, oral candidiasis - treated and resolved morbid obesity hypertension - stable hypothyroidism - stable Objective Vital Signs - Last 8 Hours Temp Pulse Resp BP Pulse Ox 05/05/17 04:02 98.0 F 84 16 133/76 95 Intake and Output 05/04/17 05/05/17 05/05/17 23:59 07:59 15:59 Intake Total 340 / 340 0 / 0 Output Total 1900 / 1900 900 / 900 Balance -1560 / -1560 -900 / -900 Intake: Oral 340 / 340 0 / 0 Output: Urine 0 / 0 650 / 650 Catheter 1900 / 1900 Wound Drainage 250 / 250 Right Abdomen 250 / 250 Other: Meal Dinner Percent of Meal Consumed 100% Stool Consistency loose Stool Color Brown # Voids 2 Weight 91.3 kg Patient Weight 05/05/17 23:59 Weight 91.3 kg - Labs 05/04/17 05:17 05/03/17 06:33 - VTE Documentation of Mechanical Device: Graduated compression elastic hosiery Consult Discharge Plan - Plan Referrals: Jm Gomez MD [Emergency Midlevel Provider] - (Patient will make her own appt. with Dr. Gomez, per Dr. Gomez. Her appointment will be worked around the schedule for Home Health. Thank you)
[2017-05-05 11:47] VITALS: BP 120/82
--- NOTE | 2017-05-05 11:50 | Physician Discharge Referral ---
Home Health/Hosp Referral Info Attending Provider: comfort Provider in Charge Post Discharge: Other (Dr Comfort Md - Surgeon) - Respiratory Orders Smoking Cessation: Smoking cessation has been advised. For more information, call the [place] Tobacco Quit Line at 0-965-QLWN-NOW. - Transfer Medications Home Medications: Citalopram Hydrobromide [Citalopram HBr] 10 mg PO DAILY 04/16/17 [History] Levothyroxine [Synthroid] 50 mcg PO DAILY 04/16/17 [History] Metoprolol XL (24 HR) Succ [Toprol XL] 25 mg PO DAILY 04/16/17 [History] Allergies/Adverse Reactions: Allergies Penicillins Allergy (Verified 04/16/17 13:24) Rash Certification: Further, I certify that my clinical findings support that this patient is homebound (i.e. absences from home require considerable and taxing effort and are for medical reasons or religion services or infrequently or short duration when for other reasons) because: Homebound Reason: Patient requires assistance of a person or device to safely leave home (Wound Vac to subcostal incision) Attestation: My signature below is to certify that this patient is under my care and that I, or nurse practitioner, or a physician's visitor services information assistant working with me, has a face-to -face encounter with this patient.
--- NOTE | 2017-05-05 11:53 | Discharge Summary ---
Outpatient Proc Discharge Plan - Plan Additional Instructions: regular diet patient may shower, wash incision with soap and water activities encouraged as tolerated; lifting limited to less than 20# follow up office 05/11/2017 or 05/12/2017 - patient to call office to make appointment resume home medications Tylenol, ibuprofen, Motrin, Advil, Aleve etc as needed for pain Prescription for Percocet 7.5/325: #25, every 4-6 hours as needed for pain not relieved by over the counter medications Prescriptions: OxyCODONE/APAP 7.5/325 [Percocet 7.5/325 MG] 1 each PO Q4-6H PRN #25 tablet PRN Reason: Pain Home Medications: Citalopram Hydrobromide [Citalopram HBr] 10 mg PO DAILY 04/16/17 [History] Levothyroxine [Synthroid] 50 mcg PO DAILY 04/16/17 [History] Metoprolol XL (24 HR) Succ [Toprol Xl] 25 mg PO DAILY 04/16/17 [History] Acetaminophen [Tylenol] 650 mg PO Q6HR PRN #0 tablet 05/05/17 [Rx] Omeprazole [PriLOSEC] 20 mg PO DAILY@0630 capsule. 05/05/17 [Rx] OxyCODONE/APAP 7.5/325 [Percocet 7.5/325 MG] 1 each PO Q4-6H PRN #25 tablet [Rx] Forms (Work/Release): ED Satisfaction Letter, Work/School Release
[2017-05-05] MEDS: Ondansetron 4 MG/2 ML VIAL IVP PRN (15:38)
== END 2017-05-05 16:28 | disposition home health service (06) ==
LOC: EMEROO 13:21 → 3ANU 13:21 → ICNU 04-23 20:47 → 3ANU 04-24 12:31
PROVIDERS: ADMIT Surgery; ATTEND Surgery